=== PATIENT | female | born 1995 | race Caucasian/White ===

== ENCOUNTER 2019-12-31 18:20 | Emergency (ER) | payer OTHER, SELFPAY ==
--- NOTE | ~2019-12-31 | XR_ITS ---
EXAMINATION: XR finger 3rd RT min 2V EXAM DATE: 12/31/2019 19:09 INDICATION: Initial encounter following injury, with pain of the right third finger. TECHNIQUE: Right third finger frontal, lateral and oblique projections obtained and reviewed. Ther e is no prior study for comparison. FINDINGS: There may be laceration, amputation of the soft tissue at the tip of the right third finge r. The tuft is unremarkable. There are no acute fractures or dislocations identified. There is no mena bcutaneous gas. There is a bandage overlying the finger. IMPRESSION: Soft tissue injury. Reviewed, dictated and finalized at location A. IMPRESSION: Soft tissue injury.
[2019-12-31 18:24] VITALS: BP 120/95; PULSE 90; RESP 14; TEMP 36.9; O2SAT 99
--- NOTE | 2019-12-31 19:00 | ED.WOUNDLAC ---
HPI - Wound/Laceration General Chief Complaint: Wound/Laceration Stated Complaint: laceration Time Seen by Provider: 12/31/19 18:26 Source: patient Mode of arrival: ambulatory Limitations: no limitations History of Present Illness HPI narrative: This is a 24 year old female that presents to the ER for laceration to right 3rd finger sustained just prior to arrival. Reports she was using a potato slicer and cut the tip of her skin off. Reports bleeding to the area and pain. She is unsure of her last tetanus vaccine. Denies decreased ROM or numbness. Related Data Home Medications Medication Instructions Recorded Confirmed No Home Medications 12/31/19 12/31/19 norethindrone-e.estradiol-iron tablet 12/31/19 [10/17 (28)] Allergies Allergy/AdvReac Type Severity Reaction Status Date / Time No Known Allergies Allergy Unverified 12/31/19 18:30 Review of Systems Review of Systems: Narrative: CONSTITUTIONAL: Denies fever SKIN: Reports laceration MUSCULOSKELETAL: Denies joint pain NEUROLOGIC: Denies numbness All systems reviewed & are unremarkable except as noted in HPI and below PMFSH Past Medical History Medical History (Updated 12/31/19 @ 19:31 by Marjan Yanes PA-C) History of anxiety Social History Social History (Updated 12/31/19 @ 19:02 by Marjan Yanes PA-C) Smoking status: Never smoker Gender identity (if verbalized by the patient): Female Exam Narrative: Exam Narrative: GENERAL: Well-appearing, well-nourished, and in no acute distress. HEAD: Normocephalic, atraumatic. EYES: EOMI. EXTREMITIES: Normal range of motion. No edema. 1cm circular area skin of the tip of the right third finger avulsed with mild bleeding SKIN: Warm, dry, no rash. NEURO: No focal deficits. Alert and oriented x3. PSYCH: Normal mood and affect Course Vital Signs Vital signs: Vital Signs Temperature 98.4 F 12/31/19 18:24 Pulse Rate 90 12/31/19 18:24 Respiratory Rate 14 12/31/19 18:24 Blood Pressure 120/95 H 12/31/19 18:24 Pulse Oximetry 99 12/31/19 18:24 Temperature 98.4 F 12/31/19 18:24 Pulse Rate 90 12/31/19 18:24 Respiratory Rate 14 12/31/19 18:24 Blood Pressure 120/95 H 12/31/19 18:24 Pulse Oximetry 99 12/31/19 18:24 Procedures Laceration Laceration 1: Date: 12/31/19 Time: 19:29 Site: hand Side (If applicable): right Size (cm): 1 Description: other (skin of tip of finger avulsed) Pre-repair: irrigated extensively ====== Skin Level ====== ====== Subcutaneous Layer ====== ====== Muscle Layer ====== ====== Tendon Layer ====== Dressing: A small area of skin at the tip of the finger is avulsed. Wound was irrigated. There is no tissue to approximate. Patient did bring in the skin, there is not much subcutaneous tissue with it. I do not think that it would live if I tried to reattach. Bleeding was controlled with Surgicel and wound bandaged MDM - Wound/Laceration MDM Narrative Medical decision making narrative: Patient presents to the emergency department for right third finger avulsion of the skin of the tip of the finger. Patient's wound was irrigated and bleeding controlled with Surgicel. She is updated on tetanus. Patient's wound was bandaged. Patient and family were educated on wound care. She is to follow-up with primary care doctor. She is given warnings to return to the ER Imaging Data Radiologist's impression: ITS Impressions Finger X-Ray 12/31/19 19:11 IMPRESSION: Soft tissue injury. Critical Care Time Critical Care Time Critical Care Time: No Discharge Plan Discharge Clinical Impression: Avulsion of skin Patient Disposition: Home, Self-Care Condition: Stable Instructions: Skin Avulsion (ED) Additional Instructions: Return to the emergency department if you experience fever, redness or swelling of your wound, abnormal draina
[2019-12-31] MEDS: IBUPROFEN 600 MG TABLET PO (19:05)
[2019-12-31] MEDS: TETANUS,DIPHTHERIA,AC PERTUSSIS ADULT (0.5 ML) BOOSTRIX IM (19:20)
[2019-12-31 19:40] VITALS: BP 141/88; PULSE 82; RESP 18; O2SAT 100
== END 2019-12-31 19:41 | disposition home or self-care (01) ==
PROVIDERS: Emergency Provider Emergency Medicine; PCP Physician Assistant
DX: S61.212A Laceration without foreign body of right middle finger without damage to nail, initial encounter (principal); Z23 Encounter for immunization; W27.4XXA Contact with kitchen utensil, initial encounter; Y93.G1 Activity, food preparation and clean up
CPT/HCPCS: 12001; 73140; 90471; 90715; 99283; A9270

== ENCOUNTER 2022-04-20 19:05 | Inpatient (IN) | payer OTHER, SELFPAY ==
--- NOTE | 2022-04-20 19:05 | LDADM ---
This patient, Arlette Cano, was admitted to Labor/Delivery/Recovery 104 on 04/20/22 at 19:05. Plans for labor, pain management and were discussed with patient. Patient/family oriented to hospital policies and general routines including ID bracelet, bed and alarms, visiting hours, pain management, procedures, bathroom and other care routines, personal items, smoking policy, room service/diet and guest tray routines, infant security routines, and visiting hours. Patient/Family are encouraged to report perceived risks to care and to ask questions if they do not understand what they are told or what they should do. See OBIX for further documentation.
--- OUTSIDE RECORDS SUMMARY | 2022-04-20 19:11 | XMS_ITS ---
:1995 Author Care Team Providers Name Role Phone Praful Mustafa Primary Care Provider Unavailable Allergies Code Code System Name Reaction Severity Status Onset 90171 RxNorm Zyrtec Vomiting ? Active ? Medications Name Status Start Date Stop Date ? ? amitriptyline 25 mg tablet Completed ? 10/21 amoxicillin 875 mg tablet Completed ? 2018 amoxicillin 875 mg-potassium clavulanate 125 mg tablet Unknown ? Not available Aurovela Fe 1-20 (28) 1 mg-20 mcg (21)/75 mg (7) tablet Complete d ? 07/06/2020 cefdinir 300 mg capsule Completed ? 08/31/20 20 cephalexin 500 mg capsule Completed ? 2019 Cipro HC 0.2 %-1 % ear drops,suspension Active ? Not available INSTILL 3 DROPS IN LEFT EAR Q 12 H clotrimazole-betamethasone 1 %-0.05 % topical cream Completed ? 11/16/2018 Fioricet 50 mg-300 mg-40 mg capsule Completed ? 10/21/2017 TAKE ONE CAPSULE BY MOUTH EVERY 6 HOURS NEEDED fluticasone propionate 50 mcg/actuation nasal Unknown ? Not available spray,suspension hydrocodone 5 mg-acetaminophen 325 mg tablet Completed ? 07/06/2020 hydrocodone 7.5 mg-ibuprofen 200 mg tablet Unknown ? Not available fnklzgko-lbenmvhbn-ydmtrgvtv 3.5 mg/mL-10,000 unit/mL- 1 % ear solution Completed ? 08/31/2020 INSTILL 4 DROPS INTO LEFT EAR TID norethindrone 1 mg-e. estradiol 20 mcg (24)-iron 75 mg Completed ? 01/09/2020 (4) chew tablet norethindrone acetate 1 mg-ethinyl estradiol 20 mcg Completed ? 07/06/2020 tablet penicillin V potassium 500 mg tablet Unknown ? Not available phentermine 37.5 mg tablet Completed ? 01/08 prednisone 50 mg tablet Active ? Not [place]
--- OUTSIDE RECORDS SUMMARY | 2022-04-20 19:11 | XMS_ITS ---
:1995 Author Care Team Providers Name Role Phone Praful Mustafa Primary Care Provider Unavailable Allergies Code Code System Name Reaction Severity Status Onset 49306 RxNorm Zyrtec Rash Mild to Moderate Active ? Medications Name Status Start Date Stop Date ? ? amitriptyline 25 mg tablet Active ? Not a vailable amoxicillin 875 mg tablet Active ? Not av ailable amoxicillin 875 mg-potassium clavulanate 125 mg tablet Active ? Not available Aurovela Fe 1-20 (28) 1 mg-20 mcg (21)/75 mg (7) tablet Active ? Not available cefdinir 300 mg capsule Active ? Not avai lable cephalexin 500 mg capsule Active ? Not av ailable Cipro HC 0.2 %-1 % ear drops,suspension Active ? Not available INSTILL 3 DROPS IN LEFT EAR Q 12 H clotrimazole-betamethasone 1 %-0.05 % topical cream Active ? Not available Fioricet 50 mg-300 mg-40 mg capsule Active ? Not available TAKE ONE CAPSULE BY MOUTH EVERY 6 HOURS NEEDED fluticasone propionate 50 mcg/actuation nasal Active ? Not available spray,suspension hydrocodone 5 mg-acetaminophen 325 mg tablet Active ? Not available hydrocodone 7.5 mg-ibuprofen 200 mg tablet Active ? Not available Minastrin 24 Fe Active ? Not available ylvuwely-vljshfmuf-sgbnyuifa 3.5 mg/mL-10,000 unit/mL-1 % ear so lution Active ? Not available INSTILL 4 DROPS INTO LEFT EAR TID norethindrone 1 mg-e. estradiol 20 mcg (24)-iron 75 mg (4) Activ e ? Not available chew tablet norethindrone acetate 1 mg-ethinyl estradiol 20 mcg tablet Activ e ? Not available penicillin V potassium 500 mg tablet Active ? Not available phentermine 37.5 mg tablet Active ? Not a vailable prednisone 50 mg tablet Active ? Not a
[2022-04-20 19:31] VITALS: BP 151/102; PULSE 112
[2022-04-20 19:39] LABS: Basophils Percent Auto 0.2 % (0.2-1.2); Eosinophils Absolute Auto 0.1 K/mm3 (0-0.3); Eosinophils Percent Auto 0.3 % (0-4.4); Hemoglobin 14.1 g/dL (12.0-15.0); Immature Granulocyte Absolute 0.07 K/mm3 (0.00-0.031); Immature Granulocyte Percent A 0.5 % (0-0.5); Lymphocytes Absolute Auto 2.44 K/mm3 (0.9-3.2); Lymphocytes Percent Auto 16.7 % (18.3-44.2); Mean Corpuscular HGB Conc 33.6 g/dl (32-36); Mean Corpuscular Hemoglobin 29.1 pg (26-34); Mean Corpuscular Volume 86.8 fl (80-100); Mean Platelet Volume 12.6 fl (7.4-10.4); Monocytes Absolute Auto 1.1 K/mm3 (0.1-0.6); Monocytes Percent Auto 7.2 % (2.6-8.5); Neutrophils Percent Auto 75.1 % (45.5-73.1); Platelet Count Result 278 k/mm3 (150-375); Red Blood Count 4.84 M/mm3 (4.2-5.4); Red Cell Distribution Width 13.5 % (11.5-14.5); White Blood Count 14.6 K/mm3 (4.5-10.0)
[2022-04-20 19:47] VITALS: BP 141/103; PULSE 130; TEMP 37
[2022-04-20 19:49] LABS: Alanine Aminotransferase 17 U/L (6-35); Albumin Level 3.8 g/dL (3.5-5.1); Alkaline Phosphatase 157 U/L (38-126); Anion Gap 9 mmol/L (8-16); Aspartate Amino Transferase 20 U/L (14-36); Bilirubin,Total 0.5 mg/dL (0.2-1.3); Blood Urea Nitrogen 5 mg/dL (7-17); Calcium 8.8 mg/dL (8.4-10.2); Carbon Dioxide 22 mmol/L (22-30); Chloride 106 mmol/L (98-107); Estimated Glomerular Filt Rate > 60; Glucose 116 mg/dL (65-110); Potassium 3.8 mmol/L (3.4-5.0); Sodium 137 mmol/L (137-145)
[2022-04-20 19:50] VITALS: BMI 37.6
[2022-04-20 19:50] LABS: Uric Acid 3.9 mg/dL (2.5-7.5)
[2022-04-20] MEDS: DINOPROSTONE 10 MG VAG INSERT VAGINAL (19:54)
[2022-04-20 19:55] VITALS: BP 138/97; PULSE 106
[2022-04-20] MEDS: AMPICILLIN 2 GM/NS 100 ML 2 GM/100 ML BAG IVPB (19:55)
[2022-04-20] MEDS: LACTATED RINGERS 1,000 ML 125 ML IV CONT (19:56)
[2022-04-20 20:30] VITALS: BP 137/83; PULSE 99
[2022-04-20 21:00] VITALS: BP 138/75; PULSE 97; TEMP 37
[2022-04-20 21:30] VITALS: BP 138/58; PULSE 98
[2022-04-21] VITALS (254 sets, daily range): BP systolic 108–174; BP diastolic 58–143; PULSE 25–202; RESP 16; TEMP 36.4–37.1; O2SAT 88–100
[2022-04-21] MEDS: AMPICILLIN 1 GM/NS 50 ML 1 GM/50 ML BAG IVPB ×6 (00:08→21:03)
--- NOTE | 2022-04-21 06:29 | WPDANESEPP ---
Anes - Eval Pre Procedure Procedure: labor epidural Date/Time: 04/21/22 06:29 Surgeon: suhail bolden Preop Diagnosis: pain during labor Pre Op Diagnosis: Induction of Labor Patient Data Age: 26 Gender: F Height: 1.7 m Weight: 109 kg Last Vital Signs Temp 36.6 C 04/21/22 04:42 Pulse 79 04/21/22 06:00 BP 137/83 04/21/22 06:00 O2 Del Method Room Air 04/21/22 06:15 Allergies Allergy/AdvReac Type Severity Reaction Status Date / Time No Known Allergies Allergy Verified 04/08/22 15:38 Home Medications Medication Instructions Recorded Confirmed Type prenat.vits,hayley,uua-cvmy-llwuf 1 tablet PO HS 04/08/22 04/08/22 History Laboratory Tests 04/20/22 04/20/22 04/20/22 19:30 19:30 19:30 WBC 14.6 K/mm3 H K/mm3 (4.5-10.0) RBC 4.84 M/mm3 M/mm3 (4.2-5.4) Hgb 14.1 g/dL g/dL (12.0-15.0) Hct 42.0 % % (37.0-47.0) MCV 86.8 fl fl (80-100) MCH 29.1 pg pg (26-34) MCHC 33.6 g/dl g/dl (32-36) RDW 13.5 % % (11.5-14.5) Plt Count 278 k/mm3 k/mm3 (150-375) MPV 12.6 fl H fl (7.4-10.4) Immature Gran % (Auto) 0.5 % % (0-0.5) Neut % (Auto) 75.1 % H % (45.5-73.1) Lymph % (Auto) 16.7 % L % (18.3-44.2) [place] % (Auto) 7.2 % % (2.6-8.5) Eos % (Auto) 0.3 % % (0-4.4) Baso % (Auto) 0.2 % % (0.2-1.2) Lymph # (Auto) 2.44 K/mm3 K/mm3 (0.9-3.2) [place] # (Auto) 1.1 K/mm3 H K/mm3 (0.1-0.6) Eos # (Auto) 0.1 K/mm3 K/mm3 (0-0.3) Baso # (Auto) 0.0 K/mm3 K/mm3 (0.0-0.1) Abs Immat Gran (auto) 0.07 K/mm3 H K/mm3 (0.00-0.031) Absolute Neuts (auto) 11.0 K/mm3 H K/mm3 (1.3-6.7) Absolute Nucleated RBC 0.0 K/mm3 K/mm3 (0.0-0.012) Nucleated RBC % 0.0 % % (0.0-0.2) Sodium Potassium Chloride Carbon Dioxide Anion Gap BUN Creatinine Estim Creat Clear Calc Estimated GFR Glucose Uric Acid Calcium Total Bilirubin AST ALT Alkaline Phosphatase Total Protein Albumin RPR Pending Blood Type A Positive Antibody Screen Negative 04/20/22 19:30 WBC RBC Hgb Hct MCV MCH MCHC RDW Plt Count MPV Immature Gran % (Auto) Neut % (Auto) Lymph % (Auto) [place] % (Auto) Eos % (Auto) Baso % (Auto) Lymph # (Auto) [place] # (Auto) Eos # (Auto) Baso # (Auto) Abs Immat Gran (auto) Absolute Neuts (auto) Absolute Nucleated RBC Nucleated RBC % Sodium 137 mmol/L mmol/L (137-145) Potassium 3.8 mmol/L mmol/L (3.4-5.0) Chloride 106 mmol/L mmol/L (98-107) Carbon Dioxide 22 mmol/L mmol/L (22-30) Anion Gap 9 mmol/L mmol/L (8-16) BUN 5 mg/dL L mg/dL (7-17) Creatinine 0.60 mg/dL L mg/dL (0.7-1.0) Estim Creat Clear Calc Not Reportable Estimated GFR > 60 (59 - ) Glucose 116 mg/dL H mg/dL (65-110) Uric Acid 3.9 mg/dL mg/dL (2.5-7.5) Calcium 8.8 mg/dL mg/dL (8.4-10.2) Total Bilirubin 0.5 mg/dL mg/dL (0.2-1.3) AST 20 U/L U/L (14-36) ALT 17 U/L U/L (6-35) Alkaline Phosphatase 157 U/L H U/L (38-126) Total Protein 7.0 g/dL g/dL (6.3-8.2) Albumin 3.8 g/dL g/dL (3.5-5.1) RPR Blood Type Antibody Screen Patient hx anesthesia problems: none Family hx anesthesia problems: none Results Review: All pre-operative results and documents have been reviewed as part of the pre-operative evaluation. [facility] Past Medical History Medical History (Updated 04/21/22 @ 06:30 by Frida Powers
--- NOTE | 2022-04-21 06:56 | PM.IMHP ---
H&P: HPI History of Present Illness Date/Time: 04/21/22 06:56 Chief Complaint: Induction of labor at term Narrative: this is a a 26-year-old 2 para 0 admitted at 39 weeks gestation for induction of labor. Her has been uncomplicated. She is positive for group B strep to be treated in labor. [facility] Past Medical History Medical History History of anxiety Obesity (BMI 30-39.9) Family History Family History Other No pertinent family history Social History Social History Smoking status: Never smoker Second hand tobacco smoke exposure: No Alcohol intake: current Substance use: never Substance use type: does not use Gender identity (if verbalized by the patient): Female Spiritual care concerns: No Meds Home Medications and Allergies Home Medications Medication Instructions Recorded Confirmed Type prenat.vits,hayley,xmz-fcws-vfycv 1 tablet PO HS 04/08/22 04/08/22 History Allergies Allergy/AdvReac Type Severity Reaction Status Date / Time No Known Allergies Allergy Verified 04/08/22 15:38 Vital Signs Vital Signs - 24 hr 04/20/22 19:31 04/20/22 19:47 04/20/22 19:55 Temperature 98.6 F Pulse Rate 112 H 130 H 106 H Blood Pressure 151/102 H 141/103 H 138/97 H Oxygen Delivery 04/20/22 20:30 04/20/22 21:00 04/20/22 21:30 Temperature 98.6 F Pulse Rate 99 97 98 Blood Pressure 137/83 138/75 138/58 L Oxygen Delivery 04/21/22 01:06 04/21/22 00:10 04/21/22 04:42 Temperature 97.9 F 97.8 F 98 F Pulse Rate 80 67 Blood Pressure 145/89 H 147/80 H Oxygen Delivery 04/21/22 05:01 04/21/22 06:00 04/21/22 06:15 Temperature Pulse Rate 74 79 Blood Pressure 133/68 137/83 Oxygen Delivery Room Air Exam GI: Inspection: normal to inspection Auscultation: normal bowel sounds : External Female Exam: normal external appearance Speculum Exam - Vagina: normal appearance of the vagina Speculum Exam - Cervix: normal appearance of the cervix ( Cervix 2/80/2. AROM clear. FHTs reassuring) H&P: Results Labs Labs: Short CBC 04/20/22 Range/Units 19:30 WBC 14.6 H (4.5-10.0) K/mm3 Hgb 14.1 (12.0-15.0) g/dL Hct 42.0 (37.0-47.0) % Plt Count 278 (150-375) k/mm3 BMP 04/20/22 19:30 Sodium 137 Potassium 3.8 Chloride 106 Carbon Dioxide 22 BUN 5 L Creatinine 0.60 L Glucose 116 H Calcium 8.8 Liver Function 04/20/22 Range/Units 19:30 Total Bilirubin 0.5 (0.2-1.3) mg/dL AST 20 (14-36) U/L ALT 17 (6-35) U/L Alkaline Phosphatase 157 H (38-126) U/L Albumin 3.8 (3.5-5.1) g/dL Assessment and Plan Assessment and plan (1) : Code(s): Z34.90 - Encounter for supervision of normal , unspecified, unspecified trimester Status: Acute (2) Obesity (BMI 30-39.9): Code(s): E66.9 - Obesity, unspecified Status: Acute (3) Positive testing for group B Streptococcus: Code(s): B95.1 - Streptococcus, group B, as the cause of diseases classified elsewhere Status: Acute Assessment and Plan: Plan Spontaneous vaginal delivery is expected. Medical induction of labor. Group B strep prophylaxis. Epidural candidate
[2022-04-21] MEDS: OXYTOCIN 30 UNITS/NS 500 ML 30 UNITS/500 ML BAG IV CONT (07:45)
[2022-04-21] MEDS: LABETALOL HCL 100 MG TABLET 200 MG PO (08:12)
[2022-04-21 09:26] LABS: Rapid Plasma Reagin Non-Reactive (NonReactive)
[2022-04-21] MEDS: LACTATED RINGERS 1,000 ML 125 ML IV CONT ×2 (09:44→17:24)
--- NOTE | 2022-04-21 18:18 | PM.OBPNLAB ---
Pain Control Date/time seen: 04/21/22 18:18 Pain control: tolerating well and epidural Pelvic Exam Dilation (cm): 10 Effacement (%): 100 Amniotic membrane status: Ruptured Contractions Contraction frequency: 3
[2022-04-21] MEDS: ONDANSETRON INJ 4 MG/2 ML VIAL IV PUSH (19:03)
--- NOTE | 2022-04-21 22:14 | PM.OBPRVD ---
OB - Delivery Note Procedure Delivery date: 04/21/22 Procedure: mil Induction method: Per Cervidil Protocol Delivery augmentation: Rupture of Membranes and Pitocin Delivery monitor: External FHT and Internal Uterine Route of delivery: Episiotomy description: None Laceration Description: Perineal - 2nd Degree Delivery repair: vicryl Specimen: No Quantitative Blood Loss (ml): 159 Anesthesia type: Epidural Disposition: Floor Complications: amp x 7 for gbs Baby Date of : 04/21/22 Time of : 21:55 Weeks of gestation at delivery: 39 Infant gender: Male presentation: vertex position: Right Occiput Anterior Placenta delivery description: Spontaneous Cord Vessel Description: 3 Vessels score one minute: 7 score five minutes: 8
[2022-04-21] MEDS: OXYTOCIN 30 UNITS/NS 500 ML 30 UNITS/500 ML BAG 125 UNITS IV CONT (22:36)
[2022-04-22] VITALS (11 sets, daily range): BP systolic 123–145; BP diastolic 72–93; PULSE 84–105; RESP 14–18; TEMP 36.2–37.1; O2SAT 96–100
[2022-04-22] MEDS: ACETAMINOPHEN 325 MG TABLET 650 MG PO ×4 (00:45→22:26)
[2022-04-22] MEDS: BENZOCAINE 20% AER SPR (*SP) 56 GM CAN 1 SPRAY TOPICAL (00:45)
[2022-04-22] MEDS: WITCH HAZEL 40 PADS 1 PAD TOPICAL (00:45)
--- NOTE | 2022-04-22 01:36 | OBPPTRN ---
04/22/2022 at 0057 Patient transferred to post room #290. Support person present. Oriented to unit, room, information board, rooming in, admission packet and security measures. Patient verbalizes understanding.
[2022-04-22] MEDS: ZOLPIDEM TARTRATE (*CRX) 5 MG TABLET PO (02:30)
[2022-04-22] MEDS: IBUPROFEN 600 MG TABLET PO ×3 (02:44→18:58)
[2022-04-22 04:33] LABS: Hematocrit 37.7 % (37.0-47.0); Hemoglobin 13.1 g/dL (12.0-15.0)
[2022-04-22] MEDS: MULTIVIT/MIN/PREN/FOL AC/IRON TABLET 1 TAB PO (07:23)
--- NOTE | 2022-04-22 07:23 | PM.OBPNVD ---
OB - PN: Subj Subjective Date/time seen: 04/22/22 07:23 Patient comments: no complaints and pain well controlled baby status: doing well (stable in level 2) OB - PN: Obj Data Labs CBC & Chem 7: 04/22/22 04:19 04/20/22 19:30 Labs: Laboratory Results - last 24 hr 04/20/22 04/22/22 19:30 04:19 Hgb 13.1 Hct 37.7 RPR Non-reactive OB - PN A/P Assessment and Plan (1) Positive testing for group B Streptococcus: Code(s): B95.1 - Streptococcus, group B, as the cause of diseases classified elsewhere Status: Acute (2) : Code(s): Z34.90 - Encounter for supervision of normal , unspecified, unspecified trimester Status: Acute (3) Obesity (BMI 30-39.9): Code(s): E66.9 - Obesity, unspecified Status: Acute Plan day: 1 Plan: routine care Time Spent With Patient Time: Total time spent is greater than 50% in coordination of care (as documented) at patient's floor/unit and/or counseling patient: Time with patient: less than 15 minutes
--- NOTE | 2022-04-22 07:48 | WPDANLDPN2 ---
Anes-Prog Note L&D Date/Time: 04/22/22 07:48 Comfortable throughout: labor and delivery Neuraxial method: epidural Epidural/Spinal procedure site: clean & non-tender Neuro status: Neuro function grossly intact. Cardiovascular status: normal Respiratory status: normal Airway patency: baseline Mental status: baseline Post-Op hydration status: normal Vital Signs: Last Vital Signs Temp 36.8 C 04/22/22 04:20 Pulse 100 04/22/22 04:20 Resp 16 04/22/22 04:20 BP 128/77 04/22/22 04:20 Pulse Ox 97 04/22/22 04:20 O2 Del Method Room Air 04/21/22 06:15 Pain score (VAS): 2 I/O: Intake & Output 04/21/22 04/21/22 04/22/22 15:59 23:59 07:59 Intake Total 1100 1050 Output Total 50 Balance 1100 1050 -50 Post-procedural complaints: none Patient feedback: Patient satisfied with anesthetic care.
[2022-04-23 00:11] VITALS: BP 135/77
[2022-04-23] MEDS: IBUPROFEN 600 MG TABLET PO ×2 (01:14→09:32)
[2022-04-23] MEDS: WITCH HAZEL 40 PADS 1 PAD TOPICAL (01:17)
[2022-04-23] MEDS: ACETAMINOPHEN 325 MG TABLET 650 MG PO (06:11)
--- NOTE | 2022-04-23 07:21 | PM.DS ---
DS: Admitting Diagnosis Discharge Date 04/23/2022 Admitting Diagnosis Term Gestational hypertension DS: Discharge Diagnosis Discharge Diagnosis (1) Positive testing for group B Streptococcus: Code(s): B95.1 - Streptococcus, group B, as the cause of diseases classified elsewhere Status: Acute (2) : Code(s): Z34.90 - Encounter for supervision of normal , unspecified, unspecified trimester Status: Acute (3) Obesity (BMI 30-39.9): Code(s): E66.9 - Obesity, unspecified Status: Acute DS: Summary Hospital Course Reason for hospitalization: Mildly elevated blood pressure at term Hospital Course: This is a 26 year primigravida admitted at term for induction of labor. She had mildly elevated blood pressures which fluctuated through to care. She was well controlled here. She underwent successful spontaneous vaginal delivery of a male. Her 48hour course was unremarkable. She remained. She was up, voiding without difficulty, ambulating, breast-feeding, generally without complaints. Time Spent with Patient Time attestation: Total time spent providing and/or coordinating discharge services: Discharge Plan Discharge Attending physician on discharge: Praful Ashraf Discharging Clinician: Praful Ashraf Patient Disposition: Home, Self-Care Activity: may shower and no straining Diet: heart healthy Wound Care Instructions: follow printed instructions Patient Instructions: Antibiotic Form Stand Alone Forms: General Discharge Information Follow-up/Referrals: Praful Ashraf MD [Physician] - Discharge Medications: Continued #2 Tablet 1 tablet PO HS Date of admission: 04/20/22 19:05 Primary Care Provider: [facility]elle Admitting Provider: Praful Ashraf Attending physician on admission: Praful Ashraf Condition: Stable
--- NOTE | 2022-04-23 07:25 | PM.OBPNVD ---
OB - PN: Subj Subjective Date/time seen: 04/23/22 07:25 Patient comments: no complaints and pain well controlled baby status: doing well and nursing well OB - PN: Obj Data Labs CBC & Chem 7: 04/22/22 04:19 04/20/22 19:30 OB - PN A/P Assessment and Plan (1) Positive testing for group B Streptococcus: Code(s): B95.1 - Streptococcus, group B, as the cause of diseases classified elsewhere Status: Acute (2) : Code(s): Z34.90 - Encounter for supervision of normal , unspecified, unspecified trimester Status: Acute Plan . Follow up 6 weeks Plan day: 1 Plan: routine care, discharge home and follow up 6 weeks Time Spent With Patient Time: Total time spent is greater than 50% in coordination of care (as documented) at patient's floor/unit and/or counseling patient: Time with patient: less than 15 minutes
[2022-04-23 08:10] VITALS: BP 127/71; PULSE 88; RESP 18; TEMP 36.4; O2SAT 97
[2022-04-23] MEDS: MULTIVIT/MIN/PREN/FOL AC/IRON TABLET 1 TAB PO (09:32)
[2022-04-23] MEDS: DOCUSATE SODIUM 100 MG CAPSULE PO (09:32)
--- NOTE | 2022-04-23 12:38 | PC.NURSE ---
Patient viewed the discharge video Mother & Baby Care, The First Two Weeks . Patient was given the opportunity and encouraged to ask questions. Patient verbalized understanding of information shared and has been given the mother/baby guide for home reference.
[2022-04-24 10:28] VITALS: BP 136/87; PULSE 92; RESP 20; TEMP 36.7; O2SAT 18
== END 2022-04-23 12:12 | disposition home or self-care (01) | DRG 807 ==
LOC: ANHLDR 19:16 → ANHOB2 04-22 01:00
PROVIDERS: Admitting Provider Obstetrics & Gynecology; PCP Physician Assistant; Visit Provider Obstetrics & Gynecology
DX: O99.824 Streptococcus B carrier state complicating childbirth (principal); Z37.0 Single live birth; Z3A.39 39 weeks gestation of pregnancy; O10.92 Unspecified pre-existing hypertension complicating childbirth; O36.8330 Maternal care for abnormalities of the fetal heart rate or rhythm, third trimester, not applicable or unspecified; O70.1 Second degree perineal laceration during delivery; O99.214 Obesity complicating childbirth; E66.9 Obesity, unspecified
CPT/HCPCS: 36415; 80053; 84550; 85014; 85018; 85025; 86592; 86850; 86900; 86901; A9270; J0290; J2405; J2590; J2795; J7120

== ENCOUNTER 2025-04-24 11:18 | Observation (INO) | payer OTHER, SELFPAY ==
--- NOTE | 2025-04-24 11:18 | OBADM ---
This patient, Arlette Cano, admitted to the OB room OB Post 116 for observation. Patient/family oriented to hospital policies and general routines including ID bracelet, bed and alarms, visiting hours, pain management, procedures, bathroom and other care routines, personal items, smoking policy, room service/diet, and visiting hours. Patient/Family are encouraged to report perceived risks to care and to ask questions if they do not understand what they are told or what they should do.
--- OUTSIDE RECORDS SUMMARY | 2025-04-24 11:43 | XMS_ITS | Data Portability ---
Author Organization [place] [facility] [employer], Main Office Address [address] [place] [address] Care Team Providers Care Welding Instructor Name Role Phone ELI BELL Primary Care Provider MATTELI JAVIER Referring Provider Assessment Encounter Date Assessment Date Assessment LastModified by Organization Details LastModified Time 03/21/2024 03/21/2024 This note is dictated and transcribed by [employer]. Acute Care Physical Therapist variances may occur. Despite proofreading, typographical errors may occur. Occasional wrong-word or 'vrucj-c-opez' substitutions may have occurred due to the inherent limitations of voice recording. Read the chart carefully and recognize, using context, where substitutions have occurred. [email or web address] Not available 03/21/2024 15:04:33 04/12/2024 04/12/2024 This note is dictated and transcribed by [employer]. Acute Care Physical Therapist variances may occur. Despite proofreading, typographical errors may occur. Occasional wrong-word or 'anssg-u-qqxg' substitutions may have occurred due to the inherent limitations of voice recording. Read the chart carefully and recognize, using context, where substitutions have occurred. [email or web address] Not available 04/12/2024 12:19:12 Plan of Treatment Reminders Order Date Submit Date Provider Last Modified By Organization Details Last Modified Time Details Appointments None recorded. Lab None recorded. Referral None recorded. Procedures None recorded. Surgeries None recorded. Imaging XR, foot, 3 or more view 2023 024 nu [email or web address] [facility] [place], [facility], [place], [address], 4 15:05:03 Medication Orders diclofenac sodium 75 mg tablet,courtney yed release 2023 024 [facility]acy #[id number], [address], [place], [address], 15:06:54 Patient TargetsNo targets recorded. Patient Instructions Encounter Date Encounter Id Patient Instructions Last Modified By Organization Details Last Modified Time 03/21/2024 [id number] peroneal tendon strain: rehab exercises teodoro Not available 03/21/2024 15:07:09 learning about rice (rest, ice, compression, and elevation) teodoro Not available 03/21/2024 15:05:03 Reason for Referral None Reported. Results Created Date Observation Date Name Description Value Unit Range Abnormal Flag Note LastModifiedBy Organization Detail LastModifiedTime 03/21/20 XR, foot, 3 or more view No observ ation record ed. [email or web address] [facility] [place] [address], [place], [address], 03/21/2024 15:05:01 Result Notes None recorded. Problems Name Problem SNOMED Code Status Onset Date Resolution Date Notes Provider Name and Address Organization Details Recorded Time Generalize d headache 670430134 Active Not Available [facility] 3 18:00:39 Migraine 51887135 Active Not Available [facility] 3 18:00:39 Sprain of right foot 9290562691715 9106 Active 2021 Not Available [facility] 3 18:00:39 Pain in right foot 7572071033613 07 Active 2021 Not Available [facility] 3 18:00:39 Anterior chest wall pain 386595941 Active 2022 Not Available [facility] 3 18:00:39 Anxiety 73064295 Active 2022 Not Available [facility] 3 18:00:40 Peroneal tendinitis of left lower limb 4965336955201 07 Active 2023 Prem Nunn DPM [address], [place], [address] , [facility] [facility] 4 15:04:18 Pain in left foot 0726925266402 07 Active 2023 Prem Nunn DPM [address], [address], [place], [address] , [facility] [employer] [facility] 4 15:04:31 Problem Notes None recorded. Procedures Surgical History Date Name Laterality Status Provider Name and Address Organization Details Recorded Time 4 Plantar Fascia Injection Left Foot completed Prem Nunn DPM [address], [address], [place], [address], [facility] 04/12/2024 12:20:57 Imaging Results None recorded. Procedure Notes None recorded. Medical Equipment None Reported. Allergies Allergen ID Allergen Name Allergen Category Reaction Reaction Severity Criticality Documentation Date Start Date Code Code System Note Provider Name and Address Organization Details Recorded Time 27397 Zyrtec medicatio n vomiting Not available Not available 11/26/2022 68738 RxNorm Not Available [facility] 3 18:01:25 Medications Name Sig Start Date Stop Date Status Note LastModified by Organization Details LastModified Time hydrocodone 7.5 mg-ibuprofe n 200 mg tablet active Not Available Not Available Not Available neomycin-po lymyxin-hyd rocort 3.5 mg/mL-10,00 0 unit/mL-1 % ear solution INSTILL 4 DROPS INTO left ear BY OTIC ROUTE 3 TIMES PER DAY active Not Available Not Available No t Available hydrocodone 5 mg-acetamin ophen 325 mg tablet TK 1 T PO Q 6 H PRF PAIN active Not Available Not Available No t Available Tubersol 5 tub. unit/0.1 mL intradermal injection solution Inject 0.1 mL by intraderm al route. 07/26 completed Not Available Not Available Not Available penicillin V potassium 500 mg tablet active Not Available Not Available Not Available phentermine 37.5 mg tablet TK 1 T PO QD 01/08 completed Not Available Not Available Not Available sulfamethox azole 800 mg-trimetho prim 160 mg tablet TK 1 T PO Q 12 H active Not Available Not Available No t Available amoxicillin 875 mg tablet 11/16 completed Not Available Not Available Not Available amitriptyli ne 25 mg tablet TAKE 1 TABLET BY MOUTH AT BEDTIME. pt due in april for appt. active Not Available Not Available No t Available cephalexin 500 mg capsule TAKE ONE CAPSULE BY MOUTH TWICE DAILY FOR 5 DAYS 10/20 completed Not Available Not Available Not Available clotrimazol e-betametha sone 1 %-0.05 % topical cream 11/16 completed Not Available Not Available Not Available prednisone 50 mg tablet one tab po daily x 5 days. start 09-01-2020 active Not Available Not Available No t Available sertraline 25 mg tablet TAKE 1 TABLET BY MOUTH EVERY DAY IN THE EVENING 01/08 completed Not Available Not Available Not Available diclofenac sodium 75 mg tablet,courtney yed release TAKE 1 TABLET BY MOUTH TWICE A DAY WITH MEALS active Not Available Not Available No t Available norethindro ne acetate 1 mg-ethinyl estradiol 20 mcg tablet TK 1 T PO QD active Not Available Not Available No t Available Cipro HC 0.2 %-1 % ear drops,suspe nsion INSTILL 3 DROPS INTO left ear BY OTIC ROUTE EVERY 12 HOURS active Not Available Not Available No t Available cefdinir 300 mg capsule Take 1 capsule every 12 hours by oral route with meals. active Not Available Not Available No t Available fluticasone propionate 50 mcg/actuati on nasal spray,suspe nsion active Not Available Not Available Not Available naproxen 500 mg tablet Take 1 tablet twice a day by oral route with meals. 10/20 completed Not Available Not Available Not Available amoxicillin 875 mg-potassiu m clavulanate 125 mg tablet active Not Available Not Available Not Available TobraDex 0.3 %-0.1 % eye drops,suspe nsion INSTILL 4 DROPS IN AFFECTED EAR 2 TIMES DAILY FOR 10 DAYS 05/29 completed Not Available Not Available Not Available norethindro ne 1 mg-e. estradiol 20 mcg (24)-iron 75 mg (4) chew tablet [employer] ONE T D 01/08 completed Not Available Not Available Not Available Fioricet 50 mg-300 mg-40 mg capsule Take 1 capsule every 6 hours by oral route as needed. active Not Available Not Available No t Available Prodrin 65 mg-20 mg-325 mg tablet active Not Available Not Available Not Available QNASL 40 mcg/actuati on nasal aerosol spray INSTILL 2 SPRAYS IEN QD UTD 10/21 completed Not Available Not Available Not Available Blisovi Fe 10/17 (28) 1 mg-20 mcg (21)/75 mg (7) tablet TAKE 1 TABLET BY MOUTH EVERY DAY 03/21 completed Not Available Not Available Not Available Vitals Date Recorded Body mass index (BMI) Body height Oxygen saturation Oxygen saturation in Arterial blood by Pulse oximetry Heart rate Body temperature Body weight Systolic And Diastolic Provider Name and Address Organization Details Last Updated DateTime 3 34.8 kg/m2 170.18 cm 99 % 99 % 82 /min 97.2 [degF] 915907. 51 g 118/74 mm[Hg] Not Available [facility] 3 18:00:33 Date Recorded Body height Body temperature Provider N tommy and Address Organization Details Last Updated DateTime 02/17/2022 170.18 cm 97.9 [degF] Not Available [facility] 11/26/2022 18:00:35 Date Recorded Body mass index (BMI) Body weight Heart rate Respiratory rate Body temperature Oxygen saturation Oxygen saturation in Arterial blood by Pulse oximetry Systolic And Diastolic Provider Name and Address Organization Details Last Updated DateTime 4 32.9 kg/m2 23768.4 g 78 /min 16 /min 97.7 [degF] 99 % 99 % 130/80 mm[Hg] Riri Stoll [employer] 4 14:49:02 Date Recorded Body height Provider Name an d Address Organization Details Last Updated DateTime 03/21/2024 170.18 cm Delmy Kennedy Sesamea 03/21/2024 14:44:34 Date Recorded Body height Body mass index (BMI) Body weight Heart rate Systolic And Diastolic Provider Name and Address Organization Details Last Updated DateTime 04/12/2024 170.18 cm 32.9 kg/m2 98926.4 g 68 /min 118/68 mm[Hg] ELIZABETH Helms [employer] 04/12/2024 12:04:00 Date Recorded Body mass index (BMI) Body height Body weight Provider Name and Address Organization Details Last Updated DateTime 06/26/2022 32.9 kg/m2 170.18 cm 94015.4 g Not Available [facility] 11/26/2022 18:00:36 Social History Question Answer Notes LastModified by Organizat ion Details LastModified Time Tobacco Smoking Status Never Smoker Not Available [facility] 11/26/2022 18:00:18 Do You Have An Advance Directive? No [id number] Information not available 11/26/2022 If You Are , What Was Your Level Of Alcohol Consumption Prior To ? None MIGRATION.659520 7313 Information not available 11/26/2022 Do You Wear A Helmet When Biking? No MIGRATION.164208 5996 Information not available 11/26/2022 What Is Your Level Of Caffeine Consumption? Occasional MIGRATION.034636 8574 Information not available 11/26/2022 In The 14 Days Before Symptom Onset, Have You Had Close Contact With A Laboratory-confirm ed COVID-19 While That Case Was Ill? No MIGRATION.623788 7801 Information not available 11/26/2022 In The 14 Days Before Symptom Onset, Have You Had Close Contact With A Person Who Is Under Investigation For COVID-19 While That Person Was Ill? No MIGRATION.922303 1813 Information not available 11/26/2022 What Type Of Diet Are You Following? REGULAR MIGRATION.441920 3756 Information not available 11/26/2022 What Is The Highest Grade Or Level Of School You Have Completed Or The Highest Degree You Have Received? [id number] MIGRATION.484208 2949 Information not available 11/26/2022 Have There Been Any Changes To Your Family Or Social Situation? No MIGRATION.213562 7793 Information not available 11/26/2022 Are There Any Guns Present In Your Home? Yes MIGRATION.969924 6435 Information not available 11/26/2022 Do You Use Insect Repellent Routinely? Yes MIGRATION.197409 1878 Information not available 11/26/2022 Do You Have A Medical Power Of Plastic Surgery Specialist? No MIGRATION.807914 1048 Information not available 11/26/2022 What Was The Date Of Your Most Recent Tobacco Screening? 03/21/2024 [email or web address] Information not available 03/21/2024 Have You Ever Been Counseled For Unhealthy Alcohol Use? No MIGRATION.862815 3962 Information not available 11/26/2022 What Is Your Relationship Status? MIGRATION.236274 7186 Information not available 11/26/2022 Do You Use Your Seat Belt Or Car Seat Routinely? Yes MIGRATION.397308 3642 Information not available 11/26/2022 Do You Have Smoke And Carbon Monoxide Detectors In Your Home? Yes MIGRATION.234233 0122 Information not available 11/26/2022 Do You Use Sunscreen Routinely? Yes MIGRATION.772036 4107 Information not available 11/26/2022 Has Tobacco Cessation Counseling Been Provided? No MIGRATION.545170 5709 Information not available 11/26/2022 Have You Recently Traveled Abroad? No MIGRATION.626193 2972 Information not available 11/26/2022 Do You Have Any Dietary Restrictions? No MIGRATION.618379 0440 Information not available 11/26/2022 Sex: Female Functional Status Question Answer Note LastModified by Organizat ion Details LastModified Time Do you use any illicit or recreational drugs? No MIGRATION.2670362 026 Information not available 11/26/2022 Do you or have you ever used any other forms of tobacco or nicotine? No MIGRATION.0793843 026 Information not available 11/26/2022 What is your level of alcohol consumption? 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 MIGRATION.4445738 026 Information not available 11/26/2022 What is your exercise level? Moderate MIGRATION.9828612 026 Information not available 11/26/2022 Mental Status Question Answer Note LastModified by Organizat ion Details LastModified Time Do you feel stressed (tense, restless, nervous, or anxious, or unable to sleep at night)? [id number] MIGRATION.[id number] 6 Information not available 11/26/2022 Family History Relationship Description Onset Age of this Age Resolved Age Notes LastModified by Organization Details LastModified Time Mother Neoplasm of skin [email or web address] Not available 2023 12:01:15 Unspecified Relation Malignant tumor of breast [email or web address] Not available 2023 12:01:15 Unspecified Relation Diabetes mellitus [id number] Not available 11/26/2022 18:00:21 Medical History Condition Response MRSA N SLEEP APNEA N ALLERGIES/HAYFEVER N LUNG DISEASE/DISORDER N INSOMNIA N COPD N RADIATION / CHEMOTHERAPY N HIGH CHOLESTEROL / HYPERLIPIDEMIA N EYE PROBLEMS Y HYPERTHYROIDISM N BLOOD DISEASES N EAR OR HEARING PROBLEMS N HYPOTHYROIDISM N DEPRESSION (INCLUDING POST ) N BACK / NECK PROBLEMS Y HAVE YOU BEEN HOSPITALIZED OR SEEN IN [facility] ER IN THE PAST YEAR ? N STROKE/TIA N ULCERS N OBESITY N ANEURYSM N HISTORY WITH COMPLICATIONS WITH ANESTHES IA ? N URINARY/BLADDER/KIDNEY PROBLEMS Y USE OF BLOOD THINNERS N NO SIGNIFICANT PAST MEDICAL HISTORY N SKIN PROBLEMS Y DIABETES, TYPE N PARATHYROID DISEASE N ENT N SEASONAL ALLERGIES N HEARTBURN / REFLUX N HEPATITIS / LIVER DISEASE N SLEEP DISORDER N SEIZURES/EPILEPSY N HEADACHES/MIGRAINES Y CHF N PACEMAKER N DIZZINESS N HEART DISEASE/HEART PROBLEMS N AIDS/HIV N FRACTURES N HYPERTENSION N CANCER: SPECIFY N TOURETTE'S N ANXIETY DISORDER Y BLOOD TRANSFUSION N ANEMIA/BLOOD DISORDER N ANESTHESIA COMPLICATIONS N CHRONIC EAR INFECTIONS N TUBERCULOSIS N Gynecological History Statement/Question Response Menses Monthly Y Abnormal Pap Y Date of Last Pap 05/24/2020 Current Control Method None Sexually Active? Y Obstetrics History GPAL:G 0 P 0 0 0 0 Immunizations Vaccine Type Date Status Note Provider Nam e and Address Organization Details Recorded Time Tdap 02/17/2022 completed Not Available [facility] 11/26/2022 18:01:24 Tdap 04/06/2017 completed Not Available [facility] 11/26/2022 18:01:24 Past Encounters Encounter ID Performer Location Encounter Start Date Encounter Closed Date Diagnosis/Indication Diagnosis SNOMED-CT Code Diagnosis ICD10 Code Diagnosis Note [id number] [facility] _ATHENA_M IGRATION_ DEFAULT_1 _1 , 03/29/2021 00:00:00 03/29/2021 11:18:49 [id number] AILEEN Aguirre S[facility] [place] [address] [facility] [place] [address] 06/27/2021 00:00:00 06/27/2021 12:50:24 [id number] AILEEN Aguirre [facility] [place] [address] [place] [address] 2021 00:00:00 2021 14:51:44 [id number] [facility] [place] [address] [place], [place] [address] 11/25/2021 00:00:00 11/25/2021 17:57:51 [id number] Gregory Julien MD [facility] [place] [address] [place] [address] 02/17/2022 00:00:00 02/17/2022 18:27:06 [id number] [facility] [place] [address] [place] [address] 06/26/2022 00:00:00 06/26/2022 16:33:04 [id number] AILEEN Aguirre [facility] [place] [address] [place] [address] 10/21/2022 00:00:00 10/28/2022 16:50:31 [id number] Prem Nunn DPM [facility] [place] [address] [place] [address] 03/21/2024 14:39:41 03/23/2024 12:10:56 Peroneal tendinitis of left lower limb 4283132134 32393 M76.72 Pain in left foot 270210 1366 55345 M79.508 [id number] Prem Nunn DPM [facility] [place] [address] [place] [address] 04/12/2024 12:00:08 04/14/2024 10:20:23 Pain in left foot 1213377333 05139 M79.672 secondary to abovepossi ble MRI if not improved in 3-4 weeks Peroneal t endinitis of left lower limb 6325763224 82416 M76.72 p tertius tendonitis , left footnot better with stretching at home and riceRX cam BOOT todayinjec tion and insertion of P Tertius left foot fifth metatarsal Health Concerns Section Related Observation LastModified by Organization Detai ls LastModified Time None Recorded Concern Status LastModified by Organization Details LastModified Time None Recorded Advance Directives Directive N: Payers Insurance Date Sequence Insurance Name Policy Number Policy Garcia Covered Member ID Garcia Member ID Guarantor Name 04/30/2024 1 [facility] [id number] Arlette Cano [id number] Arlette Cano OBGyn Episode No OBEpisode recorded.
--- OUTSIDE RECORDS SUMMARY | 2025-04-24 11:43 | XMS_ITS | Clinical Summary ---
Author Organization [facility] Address [address] [place] [address] Care Team Providers Care Collar Padder Blindstitch Name Role Phone Unavailable Primary Care Provider Unavailabl e Source Comments [facility],non-owned Affiliates and Associated Physician Practices is amultiple site organization consisting of ambulatory clinics and hospital sitesin [place], [place], [place] and [place]. This disclosure is being madepursuant to the Care Everywhere program and may not contain all information available regarding this patient. Last updated 18.[facility] Social History Tobacco Use Types Packs/Day Years Used Date Smoking Tobacco: Never Assessed Comments Unknown Sex and Gender Information Value Date Recorded Sex Assigned at Not on file Legal Sex Female 1:18 PM CDT Gender Identity Not on file Sexual Orientation Not on file Plan of Treatment Health Maintenance Due Date Last Done Comments HIV SCREENING 2011 HEPATITIS C SCREENING 07/22/2014 DTAP/TDAP/TD VACCINES (1 - Tdap) 2015 HEPATITIS B VACCINE (1 of 3 - 19+ 3-dose series) 2015 HPV VACCINE (1 - 3-dose SCDM series) 2023 COVID-19 VACCINE (1 - 2023-2 5 season) 2024 DEPRESSION SCREENING 09/28/2024 INFLUENZA VACCINE (#1) 2025 ZOSTER VACCINE (1 of 2) 2046 HIB VACCINE Aged Out No longer eligi ble based on patient's age to complete this topic MENINGOCOCCAL (Group B) VACC INE SHARED DECISION-MAKING Aged Out No longer eligibl e based on patient's age to complete this topic MENINGOCOCCAL GROUPS A/C/Y/W VACCINE Aged Out No longer eligible b ased on patient's age to complete this topic PNEUMOCOCCAL VACCINE Aged Out No long er eligible based on patient's age to complete this topic Insurance
--- OUTSIDE RECORDS SUMMARY | 2025-04-24 11:43 | XMS_ITS | Data Portability ---
Author Organization [facility] Address [address] [place] [address] Care Team Providers Care Safety And Health Consultant Name Role Phone ELI BELL Primary Care Provider Unavailab le Assessment No assessment recorded. Plan of Treatment Reminders Order Date Submit Date Provider Last Modified By Organization Details Last Modified Time Details Appointments None record ed. Lab None record ed. Referral None record ed. Procedures None record ed. Surgeries None record ed. Imaging None record ed. Medication Orders None record ed. Patient TargetsNo targets recorded. Patient Instructions Encounter Date Encounter Id Patient Instructions Last Modified By Organization Details Last Modified Time 04/06/2024 [id number] A healthy lifestyle: care instructions [email or web address] Not available 04/26/2024 17:58:30 Reason for Referral None Reported. Results Created Date Observation Date Name Description Value Unit Range Abnormal Flag Note LastModifiedBy Organization Detail LastModifiedTime 08/23/20 24 08/23/2024 pap test, thinp rep, cervi hayley Pap negati ve Not Available Not Available 15:16:34 Result Notes None recorded. Problems Name Problem SNOMED Code Status Onset Date Resolution Date Notes Provider Name and Address Organization Details Recorded Time Obesity 299009140 Active 024 AILEEN Aguirre Attn: Accounting ,[address] [facility], [place], [address] , [facility] 17:57:01 Body mass index 30+ - obesity 173652099 Active 024 AILEEN Aguirre Attn: Accounting ,[address] [facility], [place], [address] , [facility] 17:57:02 Problem Notes None recorded. Medical Equipment None Reported. Allergies No known drug allergies Medications Name Sig Start Date Stop Date Status Note LastModified by Organization Details LastModified Time phentermine 30 mg capsule TAKE ONE CAPSULE BY MOUTH DAILY 04/06 completed Not Available Not Available Not Available diclofenac sodium 75 mg tablet,delay ed release TAKE 1 TABLET BY MOUTH TWICE A DAY WITH MEALS active don't take it Not Available Not Available Not Available Blisovi Fe 10/17 (28) 1 mg-20 mcg (21)/75 mg (7) tablet TAKE 1 TABLET BY MOUTH EVERY DAY 04/06 completed Not Available Not Available Not Available Vitals Date Recorded Systolic And Diastolic Systolic And Diastolic Provider Name and Address Organization Details Last Updated DateTime 04/06/2024 114/86 mm[Hg] 108/80 mm[Hg] AILEEN Aguirre Attn: Accounting,[address] [place], [address], [facility] 04/06/2024 15:18:49 Date Recorded Body height Respiratory rate Body mass index (BMI) Body weight Oxygen saturation Oxygen saturation in Arterial blood by Pulse oximetry Heart rate Systolic And Diastolic Systolic And Diastolic Provider Name and Address Organization Details Last Updated DateTime 170.18 cm 20 /min 36.2 kg/m2 243202. 05 g 99 % 99 % 88 /min 142/90 mm[Hg] 136/88 mm[Hg] Maco Bansal MA [facility] 14:58:09 Social History Question Answer Notes LastModified by Organizat ion Details LastModified Time Tobacco Smoking Status Never Smoker Maco Bansal MA null, [facility] 04/06/2024 14:50:23 Do You Have An Advance Directive? No Information n ot available 04/06/2024 Are You Blind Or Do You Have Difficulty Seeing? No Information n ot available 04/06/2024 What Is Your Level Of Caffeine Consumption? Moderate Information not available 04/06/2024 In The 14 Days Before Symptom Onset, Have You Had Close Contact With A Laboratory-confirm ed COVID-19 While That Case Was Ill? No Information n ot available 04/05/2024 In The 14 Days Before Symptom Onset, Have You Had Close Contact With A Person Who Is Under Investigation For COVID-19 While That Person Was Ill? No Information not available 04/05/2024 Have You Been To An Area Known To Be High Risk For COVID-19? No Information not available 04/05/2024 Are You Deaf Or Do You Have Serious Difficulty Hearing? No Information not available 04/06/2024 What Type Of Diet Are You Following? REGULAR Information n ot available 04/06/2024 Are There Any Guns Present In Your Home? No Information not available 04/06/2024 What Was The Date Of Your Most Recent Tobacco Screening? 04/06/2024 Information not available 04/06/2024 Do You Use Your Seat Belt Or Car Seat Routinely? Yes Information not available 04/05/2024 Do You Have Smoke And Carbon Monoxide Detectors In Your Home? Yes Information not available 04/05/2024 Do You Use Sunscreen Routinely? Yes Information not available 04/06/2024 Has Tobacco Cessation Counseling Been Provided? Yes Information not available 04/05/2024 On What Date Was Tobacco Cessation Counseling Provided? 04/06/2024 Information not available 04/06/2024 Sex: Female Functional Status Question Answer Note LastModified by Organizat ion Details LastModified Time Do you use any illicit or recreational drugs? No Information not available 04/06/2024 Do you or have you ever used any other forms of tobacco or nicotine? No Information not available 04/06/2024 What is your level of alcohol consumption? Occasional Information not available 04/06/2024 Are you able to care for yourself independently? Yes Information not available 04/06/2024 What is your exercise level? Occasional Information not available 04/06/2024 Mental Status None recorded. Family History Nothing Reported. Medical History Condition Response Coronary Artery Disease N Other N High Blood Pressure N Atrial Fibrillation N Kidney or Bladder Problems N Thyroid Problems N GI Problems N Depression N COPD N Blood Clots N Have you had a mammogram in the last yea r? N Skin Problems N Anemia N Heart Attack ([place]) N Anxiety Disorder N Diabetes N Muscle, Joint, or Bone Problems N Seizures/Epilepsy N Have you had a colonoscopy in the last 1 0 years? N Acid Reflux (GERD) N Cancer N Stroke N Asthma N Allergies N Have you had a PSA blood test in the las t year? N High Cholesterol N Hepatitis N Liver Disease N Headaches N Osteoporosis N Heart Failure N Gynecological History Statement/Question Response Menses Monthly N Current Control Method Other Obstetrics History GPAL:G 1 P 1 0 0 1 Type Value Full Term 1 Induced 0 Spontaneous 0 Premature 0 Living 1 Total 1 Past Encounters Encounter ID Performer Location Encounter Start Date Encounter Closed Date Diagnosis/Indication Diagnosis SNOMED-CT Code Diagnosis ICD10 Code Diagnosis Note [id number] Gregory Julien MD [facility] [address] [place] [address] 04/06/2024 14:29:57 04/06/2024 15:22:09 Adult health examination 418274788 Z00.00 Annual wellness exam completed Irregular periods 713504 07 N92.6 Patient reports that she is having irregular menstrual cycles at this time. She does have gynecology that she follows with for this. Pain in left foot 911980 8186 80040 M79.672 Patient does have pain in her left foot and she is currently taking diclofenac 75 mg twice daily with meal. She is seeing anode builder , Dr. Garibay for this pain and undergoing current evaluation . Body mass index 30+ - obesity 161483032 Z68.36 BMI is 36.2 Obesity 911847978 E66.8 discussed healthy diet, exercise, controllin g carbohydra troy and added sugars in the diet Health Concerns Section Related Observation LastModified by Organization Detai ls LastModified Time None Recorded Concern Status LastModified by Organization Details LastModified Time None Recorded Advance Directives Directive N: Payers Insurance Date Sequence Insurance Name Policy Number Policy Garcia Covered Member ID Garcia Member ID Guarantor Name 04/29/2024 1 [facility] [id number] Arlette Cano [id number] Arlette Cano OBGyn Episode No OBEpisode recorded.
--- OUTSIDE RECORDS SUMMARY | 2025-04-24 11:43 | XMS_ITS | Encounter Summary ---
Author Organization [facility] Address [address] [place] [address] Care Team Providers Care Mechanical Ordnance Assembler Name Role Phone Unavailable Primary Care Provider Unavailabl e Encounter Details Date Type Department Care Team (Late st Contact Info) Description 02/27/2022 Lab Requisition [facility] D[facility] Lab [address] [facility] [place] [address] Bill Paul Jr., MD [address] [place] [address] Social History Tobacco Use Types Packs/Day Years Used Date Smoking Tobacco: Never Assessed Comments Unknown Sex and Gender Information Value Date Recorded Sex Assigned at Not on file Legal Sex Female 1:18 PM CDT Gender Identity Not on file Sexual Orientation Not on file documented as of this encounter Plan of Treatment Not on file documented as of this encounter Procedures Procedure Name Priority Date/Time Associated Diagnosis Comments DERMATOPATHOLOGY Routine 02/26/2022 12:0 0 AM CDT documented in this encounter Results * DERMATOPATHOLOGY (02/26/2022 12:00 AM CDT) Case Report Dermatopathology Report Case: [id number] Authorizing Provider: Bill Paul Jr., MD Collected: 02/26/2022 12:00 AM Ordering Location: [facility] Lab Received: 02/27/2022 01:34 PM Pathologist: Ulisses Zuniga MD Specimen: Skin, middle sternum 2 3:42 PM CDT DERMATOPATHOLOGY LABORATORY Final Diagnosis Specimen A. SKIN, middle sternum: INTRADERMAL MELANOCYTIC NEVUS (D22.5) 2 3:42 PM CDT DERMATOPATHOLOGY LABORATORY at 1542 CDT Clinical History Spitz nevus vs dysplastic nevus vs benign nevus. . 2 3:42 PM CDT DERMATOPATHOLOGY LABORATORY Gross Description Specimen A: Received is one formalin filled container labeled with the patient's name and designated middle sternum. The specimen consists of a shave biopsy measuring [id number]. Jar 0. 2 3:42 PM CDT DERMATOPATHOLOGY LABORATORY Microscopic Description Specimen A. SKIN, middle sternum: There are nests of cytologically bland melanocytes within the dermis that mature with depth. 2 3:42 PM CDT DERMATOPATHOLOGY LABORATORY Disclaimer An external and internal positive and negative controls are appropriate for the histochemical, immunohistochemical and immunofluorescence stain(s) in this case (if any), except where stated explicitly. The performance characteristics of the stain(s) cited in this report were developed and its performance characteristic determined by the Dermatopathology Laboratory at [facility], directed by Dr. Jan Zuniga. These tests need not be, and therefore are not, approved by the [place] Food and Drug Administration. The tests are used for clinical purposes. Billing Codes Specimen Charges Stain Charges 46650 1 2 3:42 PM CDT DERMATOPATHOLOGY LABORATORY Embedded Images 2 3:42 PM CDT DERMATOPATHOLOGY LABORATORY Pathology/Cytolog y TISSUE SPECIMEN FROM SKIN / Unknown 02/26/2022 02/27/2022 1:34 PM CDT Bill Paul Jr., MD LAB - PATHOLOGY/CYTOLOG Y ORDERABLES Final Result DERMATOPATHOLOGY LABORATORY [facility] - Department of Dermatology [address] [place] [address], [facility] [phone] documented in this encounter Visit Diagnoses Not on filedocumented in this encounter
[2025-04-24 11:56] VITALS: BMI 35.9
[2025-04-24 11:59] LABS: Add Urine Microscopic? YES; Appearance Urine Clear (Clear); Glucose Urine UA Negative (Negative); Leukocyte Esterase Ur Trace LEU/UL (Negative); Nitrate Urine Negative (Negative); Non Pathogenic Casts 0-2; Specific Grav Ur 1.025 (1.001-1.035)
[2025-04-24 12:00] VITALS: BP 108/56; PULSE 99
[2025-04-24 12:15] VITALS: BP 102/58; PULSE 92
[2025-04-24 12:30] VITALS: BP 121/72; PULSE 100
--- NOTE | 2025-04-24 12:31 | PM.OBTRLD ---
OB - Triage/Final Diagnosis Visit Information Date of evaluation: 04/24/25 Reason for evaluation: threatened labor Comments/Additional reasons for admission: I have assessed the risk for this patient, Arlette Cano, and determined that she would benefit from observation care. Evaluation Laboratory results: Laboratory Tests 04/24/25 11:38 Urine Color Dark yellow Urine Appearance Clear Urine pH 6.0 Ur Specific Shoshoni 1.025 Urine Protein Trace Urine Glucose (UA) Negative Urine Ketones Trace H Ur Blood (Man) Negative Urine Nitrate Negative Urine Bilirubin Negative Urine Urobilinogen 1.0 Ur Leukocyte Esterase Trace H Urine RBC 3-5 H Urine WBC 6-10 H Ur Squamous Epith Cells Moderate Urine Bacteria 2+ H Urine Casts 0-2 Vital signs: Vital Signs - 24 hr 04/24/25 12:00 04/24/25 12:15 04/24/25 12:30 Pulse Rate 99 92 100 Blood Pressure 108/56 L 102/58 L 121/72
[2025-04-24 12:40] LABS: Hematocrit 35.2 % (37.0-47.0); Hemoglobin 11.6 g/dL (12.0-15.0); Immature Granulocyte Percent A 0.6 % (0-0.5); Lymphocytes Absolute Auto 1.15 K/mm3 (0.9-3.2); Mean Corpuscular HGB Conc 33.0 g/dl (32-36); Mean Corpuscular Hemoglobin 28.6 pg (26-34); Mean Corpuscular Volume 86.7 fl (80-100); Nucleated Red Blood Cells Absolute Auto 0.000 K/mm3 (0.0-0.012); Nucleated Red Blood Cells Perc 0.0 % (0.0-0.2); Platelet Count Result 233 k/mm3 (150-375); Red Blood Count 4.06 M/mm3 (4.2-5.4); White Blood Count 11.4 K/mm3 (4.5-10.0)
== END 2025-04-24 12:53 | disposition home or self-care (01) ==
PROVIDERS: Admitting Provider Obstetrics & Gynecology; PCP Physician Assistant; Visit Provider Obstetrics & Gynecology
DX: O47.02 False labor before 37 completed weeks of gestation, second trimester (principal); Z3A.25 25 weeks gestation of pregnancy
CPT/HCPCS: 36415; 81001; 85025; G0378; G0379

== ENCOUNTER 2025-07-19 19:07 | Inpatient (IN) | payer OTHER, SELFPAY ==
[2025-07-19] VITALS (50 sets, daily range): BP systolic 112–138; BP diastolic 60–83; PULSE 74–123; TEMP 36.3; O2SAT 96–100; BMI 34.5
--- OUTSIDE RECORDS SUMMARY | 2025-07-19 20:32 | XMS_ITS | Data Portability ---
[facility] Address [address] [place] [address] Care Team Providers Care Purse Seiner Name Role Phone ELI BELL Primary Care [...] By Organization Details Last Modified Time 04/06/2024 [id number] A healthy lifestyle: care instructions [email or web address] Not [...] and Address Organization Details Recorded Time Obesity 996092762 Active 024 AILEEN Aguirre Attn: Accounting ,[address] [facility], [place], [address] , [facility] 17:57:01 Body mass index 30+ - obesity 925543556 Active 024 AILEEN Aguirre Attn: Accounting ,[address] [facility], [place], [address] , [facility] 17:57:02 Problem Notes None recorded. Medical Equipment None Reported. Allergies No known drug allergies Medications Name Sig Start Date Stop Date Status Note LastModified by Organization Details LastModified Time azithromyci n 250 mg tablet TAKE 2 TABLETS BY MOUTH TODAY, THEN TAKE 1 TABLET DAILY FOR 4 DAYS DIRECTED active Not Available Not Available No t Available metronidazo le 0.75 % (37.5 mg/5 gram) vaginal gel INSERT ONE APPLICATO RFUL VAGINALLY AT BEDTIME FOR 5 DAYS 07/16 completed Not Available Not Available Not Available ondansetron HCl 4 mg tablet TAKE 1 TABLET BY MOUTH EVERY 6 HOURS NEEDED active Not Available Not Available No t Available phentermine 30 mg capsule TAKE ONE CAPSULE BY MOUTH DAILY 04/06 completed Not Available Not Available Not Available diclofenac sodium 75 mg tablet,courtney yed release TAKE 1 TABLET BY MOUTH TWICE A DAY WITH MEALS active don't take it Not Available Not Available Not Available letrozole 2.5 mg tablet TAKE 2 TABLETS BY MOUTH ONCE A DAY ON DAYS 5 THROUGH 9 OF CYCLE active Not Available Not Available No t Available sertraline 50 mg tablet TAKE 1 TABLET BY MOUTH EVERY DAY active Not Available Not Available No t Available Blisovi Fe 10/17 (28) 1 mg-20 mcg (21)/75 mg (7) tablet TAKE 1 TABLET BY MOUTH EVERY DAY 04/06 completed Not Available Not Available Not Available Vitals Date Recorded Systolic And Diastolic Systolic And Diastolic Provider Name and Address Organization Details Last Updated DateTime 04/06/2024 114/86 mm[Hg] 108/80 mm[Hg] AILENE Aguirre Attn: Accounting,[address] [place], [address], [facility] 04/06/2024 15:18:49 Date Recorded Body height Respiratory rate Body mass index (BMI) Body weight Oxygen saturation Oxygen saturation in Arterial blood by Pulse oximetry Heart rate Systolic And Diastolic Systolic And Diastolic Provider Name and Address Organization Details Last Updated DateTime 170.18 cm 20 /min 36.2 kg/m2 380171. 05 g 99 % 99 % 88 /min 142/90 mm[Hg] 136/88 mm[Hg] Maco Bansal MA [facility] 4 14:58:09 Social History Question Answer Notes LastModified by Organizat ion Details LastModified Time Tobacco Smoking Status Never Smoker Maco Bansal MA [facility] [place] [facility] 04/06/2024 14:50:23 Do You Have An Advance [...] Response Coronary Artery Disease N Other N Atrial Fibrillation N High Blood Pressure N Depression N COPD N Blood Clots N Anxiety Disorder N Muscle, Joint, or Bone Problems N Acid Reflux (GERD) N Cancer N Stroke N Headaches N Kidney or Bladder Problems N Have you had a mammogram in the last yea r? N Skin Problems N Asthma N Allergies N Have you had a PSA blood test in the las t year? N Hepatitis N High Cholesterol N Liver Disease N Thyroid Problems N GI Problems N Anemia N Heart Attack ([place]) N Diabetes N Seizures/Epilepsy N Have you had a colonoscopy in the last 1 0 years? N Heart Failure N Osteoporosis N Gynecological History Statement/Question Response Menses Monthly N Current Control Method Other Obstetrics History GPAL:G 1 P 1 0 0 1 Type Value Full Term 1 Induced 0 Spontaneous 0 Premature 0 Living 1 Total 1 Past Encounters Encounter ID Performer Location Encounter Start Date Encounter Closed Date Diagnosis/Indication Diagnosis SNOMED-CT Code Diagnosis ICD10 Code Diagnosis IMO Codes Diagnosis Note [id number] Gregory Julien MD [place] [id number] [address] 04/06/2024 14:29:57 04/06/2024 15:22:09 Adult health examination 210400437 Z00.00 Annual wellness exam completed Irregular periods 254402 07 N92.6 Patient reports that she is having irregular menstrual cycles at this time. She does have gynecology that she follows with for this. Pain in left foot 000040 9795 95915 M79.672 Patient does have pain in her left foot and she is currently taking diclofenac 75 mg twice daily with meal. She is seeing full time , Dr. Garibay for this pain and undergoing current evaluation . Body mass index 30+ - obesity 111143081 Z68.36 BMI is 36.2 Obesity 415171033 E66.8 discussed healthy diet, exercise, controllin g carbohydra troy and added sugars in the diet Health Concerns Section Related Observation LastModified by Organization Detai ls LastModified Time None Recorded Concern Status LastModified by Organization Details LastModified Time None Recorded Advance Directives Directive N: Payers Insurance Date Sequence Insurance Name Policy Number Policy Garcia Covered Member ID Garcia Member ID Guarantor Name 04/29/2024 1 [facility] [id number] [facility] [id number] Notes Date Note Type Note Provider Name and Address Organization Details Recorded Time 04/06/2024 text/html Patient is here for annual wellness exam. She states that she does have some irregular periods at this time ; she also has some pain in her left foot. She is up-to-date on lab work from the last office and not currently in need AILEEN Aguirre Attn: Accounting,[address] [facility], [place], [address], [place] [facility] 04/26/2024 17:58:52 OBGyn Episode No OBEpisode recorded.
--- OUTSIDE RECORDS SUMMARY | 2025-07-19 20:32 | XMS_ITS | Encounter Summary ---
Author Organization [facility] Address [address] [place] [address] Care Team Providers Care Plaster Whittler Name Role Phone Unavailable Primary Care Provider Unavailabl e Encounter Details Date Type Department Care Team (Late st Contact Info) Description 02/27/2022 Lab Requisition [facility] DermPath Lab [address] [facility] [place] [id number] Bill Paul Jr., MD [address] [facility] [address] [place] [address] Social History Tobacco Use Types Packs/Day Years [...] AM CDT) Case Report Dermatopathology Report Case: [id number] Authorizing Provider: Bill Paul Jr., MD Collected: 02/26/2022 12:00 AM Ordering Location: [facility] Lab Received: 02/27/2022 01:34 PM Pathologist: [...] specimen consists of a shave biopsy measuring [id number]. Jar 0. 2 3:42 PM CDT DERMATOPATHOLOGY [...] characteristic determined by the Dermatopathology Laboratory at [facility], directed by Dr. Jan Zuniga. These tests need not be, and therefore are not, approved by the [place] Food and Drug Administration. The tests are used for clinical purposes. Billing Codes Specimen Charges Stain Charges 68813 1 2 3:42 PM CDT DERMATOPATHOLOGY LABORATORY Embedded Images 2 3:42 PM CDT DERMATOPATHOLOGY LABORATORY Pathology/Cytolog y TISSUE SPECIMEN FROM SKIN / Unknown 02/26/2022 02/27/2022 1:34 PM CDT Bill Paul Jr., MD LAB - PATHOLOGY/CYTOLOG Y ORDERABLES Final Result DERMATOPATHOLOGY LABORATORY [facility] - Department of Dermatology [address] [place] [address], [facility] [phone] documented in this encounter Visit Diagnoses Not on filedocumented in this encounter
--- OUTSIDE RECORDS SUMMARY | 2025-07-19 20:32 | XMS_ITS | Clinical Summary ---
Author Organization [facility] [employer] Address [address] [place] [address] Care Team Providers Care Storage Manager Name Role Phone Unavailable Primary Care Provider Unavailabl e Source Comments [facility] [employer],non-owned Affiliates and Associated Physician Practices is amultiple site organization consisting of ambulatory clinics and hospital sitesin [place], [place], [place] and [place]. This disclosure is being madepursuant to the Care Everywhere program and may not contain all information available regarding this patient. Last updated 18.[facility] [employer] Social History Tobacco Use Types Packs/Day Years [...] VACCINE (1 - 3-dose SCDM series) 2023 DEPRESSION SCREENING 09/28/2024 COVID-19 VACCINE (1 - 2023-2 5 season) 2025 INFLUENZA VACCINE (#1) 2025 ZOSTER VACCINE (1 [...]
--- OUTSIDE RECORDS SUMMARY | 2025-07-19 20:33 | XMS_ITS | Data Portability ---
Author Organization [place] - S [employer], Main Office Address [address] [place] [address] Care Team Providers Care Cocoa Roaster Name Role Phone ELI BELL Primary Care Provider [phone] ELI BELL Referring Provider [phone] Assessment Encounter Date Assessment Date Assessment LastModified by Organization Details LastModified Time 03/21/2024 03/21/2024 This note is dictated and transcribed by [employer]. Retail Banking Manager variances may occur. Despite proofreading, typographical errors may occur. Occasional wrong-word or 'dyayu-e-yjyk' substitutions may have occurred due to the inherent limitations of voice recording. Read the chart carefully and recognize, using context, where substitutions have occurred. [email or web address] Not available 03/21/2024 15:04:33 04/12/2024 04/12/2024 This note is dictated and transcribed by [employer]. Retail Banking Manager variances may occur. Despite proofreading, typographical errors may occur. Occasional wrong-word or 'opfni-o-puod' substitutions may have occurred due to the inherent limitations of voice recording. Read the chart carefully and recognize, using context, where substitutions have occurred. [email or web address] Not available 04/12/2024 12:19:12 Plan of Treatment Reminders Order Date Submit Date Provider Last Modified By Organization Details Last Modified Time Details Appointments None recorded. Lab None recorded. Referral None recorded. Procedures None recorded. Surgeries None recorded. Imaging XR, foot, 3 or more view 2023 024 nu 7 [facility] [place], [facility], [place], [address], 4 15:05:03 Medication Orders diclofenac sodium 75 mg tablet,courtney yed release 2023 024 [facility] #[id number], [address], [place], [address], 15:06:54 Patient TargetsNo targets recorded. Patient Instructions Encounter Date Encounter Id Patient Instructions Last Modified By Organization Details Last Modified Time 03/21/2024 [id number] peroneal tendon strain: rehab exercises teodoro Not available 03/21/2024 15:07:09 learning about rice (rest, ice, compression, and elevation) teodoro Not available 03/21/2024 15:05:03 Reason for Referral None Reported. Results Created Date Observation Date Name Description Value Unit Range Abnormal Flag Note LastModifiedBy Organization Detail LastModifiedTime 03/21/20 XR, foot, 3 or more view No observ ation record ed. [email or web address] [facility] [place] [facility] [place] [address], [place], [address], 03/21/2024 15:05:01 Result Notes None recorded. Problems Name Problem SNOMED Code Status Onset Date Resolution Date Notes Provider Name and Address Organization Details Recorded Time Generalize d headache 448817615 Active Not Available [facility] 3 18:00:39 Migraine 46368687 Active Not Available [facility] 3 18:00:39 Sprain of right foot 2905675318851 9106 Active 2021 Not Available [facility] 3 18:00:39 Pain in right foot 6526994831253 07 Active 2021 Not Available [facility] 3 18:00:39 Anterior chest wall pain 885647542 Active 2022 Not Available [facility] 3 18:00:39 Anxiety 47686163 Active 2022 Not Available [facility] 3 18:00:40 Peroneal tendinitis of left lower limb 5688442282163 07 Active 2023 Prem Nunn DPM [address], [address], [place], [address] , [facility] [employer] [facility] [employer] [facility] 4 15:04:18 Pain in left foot 2050196767925 07 Active 2023 Prem Nunn DPM [address], [address], [place], [address] , [employer] [facility] 4 15:04:31 Problem Notes None recorded. Procedures Surgical History Date Name Laterality Status Provider Name and Address Organization Details Recorded Time 4 Plantar Fascia Injection Left Foot completed Prem Nunn DPM [address], [address], [place], [address], [employer] [facility] [employer] [facility] 04/12/2024 12:20:57 Imaging Results None recorded. Procedure Notes None recorded. Medical Equipment None Reported. 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 51 g 118/74 mm[Hg] Not Available [facility] 3 18:00:33 Date Recorded Body height Body temperature Provider N tommy and Address Organization Details Last Updated DateTime 02/17/2022 170.18 cm 97.9 [degF] Not Available [facility] 11/26/2022 18:00:35 Date Recorded Body mass index (BMI) Body weight Heart rate Respiratory rate Body temperature Oxygen saturation Oxygen saturation in Arterial blood by Pulse oximetry Systolic And Diastolic Provider Name and Address Organization Details Last Updated DateTime 4 32.9 kg/m2 48888.4 g 78 /min 16 /min 97.7 [degF] 99 % 99 % 130/80 mm[Hg] Riri Stoll [employer] 4 14:49:02 Date Recorded Body height Provider Name an d Address Organization Details Last Updated DateTime 03/21/2024 170.18 cm Delmy Kennedy [employer] 03/21/2024 14:44:34 Date Recorded Body height Body mass index (BMI) Body weight Heart rate Systolic And Diastolic Provider Name and Address Organization Details Last Updated DateTime 04/12/2024 170.18 cm 32.9 kg/m2 19969.4 g 68 /min 118/68 mm[Hg] ELIZABETH Helms [employer] 04/12/2024 12:04:00 Date Recorded Body mass index (BMI) Body height Body weight Provider Name and Address Organization Details Last Updated DateTime 06/26/2022 32.9 kg/m2 170.18 cm 52358.4 g Not Available [employer] 11/26/2022 18:00:36 Social History Question Answer Notes LastModified by Organizat ion Details LastModified Time Tobacco Smoking Status Never Smoker Not Available [facility] 11/26/2022 18:00:18 Do You Have An Advance Directive? No [id number] Information not available 11/26/2022 If You Are , What Was Your Level Of Alcohol Consumption Prior To ? None MIGRATION.471175 9589 Information not available 11/26/2022 Do You Wear A Helmet When Biking? No MIGRATION.151781 6184 Information not available 11/26/2022 What Is Your Level Of Caffeine Consumption? Occasional MIGRATION.013668 9208 Information not available 11/26/2022 In The 14 Days Before Symptom Onset, Have You Had Close Contact With A Laboratory-confirm ed COVID-19 While That Case Was Ill? No MIGRATION.657724 7713 Information not available 11/26/2022 In The 14 Days Before Symptom Onset, Have You Had Close Contact With A Person Who Is Under Investigation For COVID-19 While That Person Was Ill? No MIGRATION.518399 1956 Information not available 11/26/2022 What Type Of Diet Are You Following? REGULAR MIGRATION.182793 6547 Information not available 11/26/2022 What Is The Highest Grade Or Level Of School You Have Completed Or The Highest Degree You Have Received? [id number] MIGRATION.599591 3016 Information not available 11/26/2022 Have There Been Any Changes To Your Family Or Social Situation? No MIGRATION.768956 1233 Information not available 11/26/2022 Are There Any Guns Present In Your Home? Yes MIGRATION.161954 5712 Information not available 11/26/2022 Do You Use Insect Repellent Routinely? Yes MIGRATION.646122 3113 Information not available 11/26/2022 Do You Have A Medical Power Of Cash Applications Coordinator? No MIGRATION.315799 0027 Information not available 11/26/2022 What Was The Date Of Your Most Recent Tobacco Screening? 03/21/2024 [email or web address] Information not available 03/21/2024 Have You Ever Been Counseled For Unhealthy Alcohol Use? No MIGRATION.802417 2979 Information not available 11/26/2022 What Is Your Relationship Status? MIGRATION.925888 4665 Information not available 11/26/2022 Do You Use Your Seat Belt Or Car Seat Routinely? Yes MIGRATION.568525 2437 Information not available 11/26/2022 Do You Have Smoke And Carbon Monoxide Detectors In Your Home? Yes MIGRATION.592677 0441 Information not available 11/26/2022 Do You Use Sunscreen Routinely? Yes MIGRATION.231034 9742 Information not available 11/26/2022 Has Tobacco Cessation Counseling Been Provided? No MIGRATION.649617 8357 Information not available 11/26/2022 Have You Recently Traveled Abroad? No MIGRATION.055057 2624 Information not available 11/26/2022 Do You Have Any Dietary Restrictions? No MIGRATION.276729 2070 Information not available 11/26/2022 Sex: Female Functional Status Question Answer Note LastModified by Organizat ion Details LastModified Time Do you use any illicit or recreational drugs? No MIGRATION.0706619 026 Information not available 11/26/2022 Do you or have you ever used any other forms of tobacco or nicotine? No MIGRATION.4262621 026 Information not available 11/26/2022 What is your level of alcohol consumption? 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 MIGRATION.0090647 026 Information not available 11/26/2022 What is your exercise level? Moderate MIGRATION.3045341 026 Information not available 11/26/2022 Mental Status Question Answer Note LastModified by Organizat ion Details LastModified Time Do you feel stressed (tense, restless, nervous, or anxious, or unable to sleep at night)? [id number] MIGRATION.[id number] 6 Information not available 11/26/2022 Family History Relationship Description Onset Age of this Age Resolved Age Notes LastModified by Organization Details LastModified Time Mother Neoplasm of skin [email or web address] Not available 2023 12:01:15 Unspecified Relation Malignant neoplasm of breast [email or web address] Not available 2023 12:01:15 Unspecified Relation Diabetes mellitus [id number] Not available 11/26/2022 18:00:21 Medical History Condition Response MRSA N SLEEP APNEA N ALLERGIES/HAYFEVER N LUNG DISEASE/DISORDER N INSOMNIA N COPD N RADIATION / CHEMOTHERAPY N HIGH CHOLESTEROL / HYPERLIPIDEMIA N EYE PROBLEMS Y HYPERTHYROIDISM N BLOOD DISEASES N EAR OR HEARING PROBLEMS N HYPOTHYROIDISM N DEPRESSION (INCLUDING POST ) N BACK / NECK PROBLEMS Y HAVE YOU BEEN HOSPITALIZED OR SEEN IN [facility] ER IN THE PAST YEAR ? N [...] Recorded Time Tdap 02/17/2022 completed Not Available [facility] 11/26/2022 18:01:24 Tdap 04/06/2017 completed Not Available [facility] 11/26/2022 18:01:24 Past Encounters Encounter ID Performer Location Encounter Start Date Encounter Closed Date Diagnosis/Indication Diagnosis SNOMED-CT Code Diagnosis ICD10 Code Diagnosis IMO Codes Diagnosis Note [id number] [facility]_M IGR[facility]_ DEFAULT_1 _1 , 03/29/2021 00:00:00 03/29/2021 11:18:49 [id number] AILEEN Aguirre [facility] [place] [address] [place] [address] 06/27/2021 00:00:00 06/27/2021 12:50:24 [id number] AILEEN Aguirre [facility] [place] [address] [place] [address] 2021 00:00:00 2021 14:51:44 [id number] [facility] [place] [address] [place], [place] [address] 11/25/2021 00:00:00 11/25/2021 17:57:51 [id number] Gregory Julien MD [facility] [place] [address] [place], [place] [address] 02/17/2022 00:00:00 02/17/2022 18:27:06 [id number] [facility] [place] [address] [place] [address] 06/26/2022 00:00:00 06/26/2022 16:33:04 [id number] AILEEN Aguirre [facility] [place] [address] [place] [address] 10/21/2022 00:00:00 10/28/2022 16:50:31 [id number] Prem Nunn DPM [facility] [place] [address] [place] [address] 03/21/2024 14:39:41 03/23/2024 12:10:56 Peroneal tendinitis of left lower limb [id number] 18996 M76.72 Pain in left foot 383395 3250 44113 M79.842 [id number] Prem Nunn DPM [facility] [place] [address] [facility] [address] [place] [address] 04/12/2024 12:00:08 04/14/2024 10:20:23 Pain in left foot 1976459133 02180 M79.672 secondary to abovepossi ble MRI if not improved in 3-4 weeks Peroneal t endinitis of left lower limb 0279848443 17800 M76.72 p tertius tendonitis , left footnot [...] Garcia Member ID Guarantor Name 04/30/2024 1 [facility] [id number] Arlette Cano [id number] Arlette Cano Notes Date Note Type Note Provider Name and Address Organization Details Recorded Time 03/21/2024 text/html . Patient is a 28-year-old female who presents the office with complaints of left foot pain. Patient states that she has pain on the outside of her foot she states she can comfortably walk [employer]. Patient states the pain is constant throbbing and aching in nature she rates it as 4/10. Patient states it does improve with rest. 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 Patient states shortly after she became and was unable to be treated after that. Patient denies any other complaints. Prem Nunn DPM [address], [place], [address], [employer] 03/21/2024 15:11:14 04/12/2024 text/html . Patient is a 28-year-old female she returns for follow-up on left foot pain secondary to peroneal tendinitis. Patient states she has been doing stretching and icing to the foot she continues have pain with weight-bearing. Patient denies any significant improvement. I did discuss the options of an injection which she elected to pursue today as well as a Cam boot for offloading. Patient states she may not be very compliant with use of the cam boot. Patient denies any other complaints. I did recommend that she is compliant with Cam boot as this will help to reduce pressure and inflammation of foot as well as helped offload and per vent overuse of the foot. Prem Nunn DPM [address] [employer], [place], [address], [employer] 04/12/2024 12:23:17 OBGyn Episode No OBEpisode recorded.
[2025-07-19] MEDS: DINOPROSTONE 10 MG VAG INSERT VAGINAL (20:35)
[2025-07-19 21:00] LABS: Hematocrit 37.1 % (37.0-47.0); Hemoglobin 11.8 g/dL (12.0-15.0); Immature Granulocyte Percent A 0.6 % (0-0.5); Lymphocytes Absolute Auto 2.66 K/mm3 (0.9-3.2); Mean Corpuscular HGB Conc 31.8 g/dl (32-36); Mean Corpuscular Hemoglobin 25.1 pg (26-34); Mean Corpuscular Volume 78.9 fl (80-100); Nucleated Red Blood Cells Absolute Auto 0.000 K/mm3 (0.0-0.012); Nucleated Red Blood Cells Perc 0.0 % (0.0-0.2); Platelet Count Result 284 k/mm3 (150-375); Red Blood Count 4.70 M/mm3 (4.2-5.4); White Blood Count 13.4 K/mm3 (4.5-10.0)
[2025-07-19 21:07] LABS: Add Urine Microscopic? YES; Appearance Urine Cloudy (Clear); Glucose Urine UA Negative (Negative); Leukocyte Esterase Ur Negative LEU/UL (Negative); Nitrate Urine Negative (Negative); Non Pathogenic Casts 0-2; Specific Grav Ur 1.020 (1.001-1.035)
--- NOTE | 2025-07-19 21:12 | LDADM ---
This patient, Arlette Cano, was admitted to Labor/Delivery/Recovery 108 on 07/19/25 at 19:07. Plans for labor, pain management and were discussed with patient. Patient/family oriented to hospital policies and general routines including ID bracelet, bed and alarms, visiting hours, pain management, procedures, bathroom and other care routines, personal items, smoking policy, room service/diet and guest tray routines, infant security routines, and visiting hours. Patient/Family are encouraged to report perceived risks to care and to ask questions if they do not understand what they are told or what they should do. See OBIX for further documentation.
[2025-07-19 21:13] LABS: Alanine Aminotransferase 35 U/L (6-35); Albumin Level 3.6 g/dL (3.5-5.1); Alkaline Phosphatase 202 U/L (38-126); Anion Gap 9 mmol/L (4-12); Aspartate Amino Transferase 37 U/L (14-36); Bilirubin,Total 0.9 mg/dL (0.2-1.3); Blood Urea Nitrogen 13 mg/dL (7-17); Calcium 9.3 mg/dL (8.4-10.2); Carbon Dioxide 20 mmol/L (22-30); Chloride 104 mmol/L (98-107); Estimated Glomerular Filt Rate > 60; Glucose 94 mg/dL (65-110); Potassium 3.9 mmol/L (3.4-5.0); Sodium 133 mmol/L (137-145); Total Protein 7.4 g/dL (6.3-8.2); Uric Acid 4.3 mg/dL (2.5-7.5)
[2025-07-19 21:15] LABS: Total Protein Urine Random 9 mg/dL; Ur Ttl Prot Creatinine Ratio 0.08 mg/mg (0-0.20)
[2025-07-19 21:40] LABS: Syphilis IgG/IgM Antibody Non-Reactive (Nonreactive)
[2025-07-19] MEDS: ZOLPIDEM TARTRATE (*CRX) 5 MG TABLET PO (23:34)
[2025-07-20] VITALS (187 sets, daily range): BP systolic 105–151; BP diastolic 44–118; PULSE 71–223; RESP 18–20; TEMP 36.2–37.2; O2SAT 68–100
[2025-07-20] MEDS: LACTATED RINGERS 1,000 ML 125 ML IV CONT ×2 (05:40→09:23)
[2025-07-20] MEDS: OXYTOCIN 30 UNITS/NS 500 ML 30 UNITS/500 ML BAG IV CONT (05:40)
--- NOTE | 2025-07-20 06:41 | PM.IMHP ---
H&P: HPI History of Present Illness Date/Time: 07/20/25 06:41 Chief Complaint: Gestational hypertension at term Narrative: This is a 29-year-old 2 para 1 whose last menstrual period was 10/16/2024, EDC is 08/02/2025, confirmed by early 1st trimester ultrasound presents at 38 weeks gestation for induction of labor secondary to elevated blood pressures. PH labs were normal her blood pressures have been worsening over the last few weeks. She is negative for group B strep and she passed her diabetic testing PMFSH Past Medical History Medical History Obesity (BMI 30-39.9) History of anxiety Family History Family History Other No pertinent family history Social History Social History Smoking status: Never smoker Second hand tobacco smoke exposure: No Alcohol intake: current Substance use: never Substance use type: does not use Lack of Transportation: No Lack of Food: Never True Current Housing: I Have Housing Concerned About Future Housing: No Difficulty Paying Gas/Electric Bills: No Difficulty Paying for Meds: No Currently Unemployed: No Education: Bachelor's Degree Difficulty w/ Childcare or Family Care: No Gender identity (if verbalized by the patient): Female Spiritual care concerns: No Meds Home Medications and Allergies Home Medications ?Medication ?Instructions ?Recorded ?Confirmed ?Type prenat.vits,hayley,dgk-zyft-pacfa 1 tablet PO HS 04/08/22 07/11/25 History Probiotic and Prebiotic 07/19/25 History Unisom (doxylamine) 07/19/25 History Allergies Allergy/AdvReac Type Severity Reaction Status Date / Time No Known Allergies Allergy Verified 07/19/25 22:26 Vital Signs Vital Signs - 24 hr 07/19/25 19:31 07/19/25 19:46 07/19/25 20:33 Temperature Pulse Rate 96 83 Blood Pressure 123/60 130/82 Pulse Oximetry 98 Oxygen Delivery 07/19/25 20:38 07/19/25 20:43 07/19/25 20:48 Temperature Pulse Rate Blood Pressure Pulse Oximetry 100 98 99 Oxygen Delivery 07/19/25 20:51 07/19/25 20:53 07/19/25 20:58 Temperature Pulse Rate 81 Blood Pressure 130/83 Pulse Oximetry 99 99 Oxygen Delivery 07/19/25 21:01 07/19/25 21:03 07/19/25 21:08 Temperature Pulse Rate 84 Blood Pressure 138/77 Pulse Oximetry 99 99 Oxygen Delivery 07/19/25 21:13 07/19/25 21:18 07/19/25 21:23 Temperature Pulse Rate Blood Pressure Pulse Oximetry 99 100 99 Oxygen Delivery 07/19/25 21:28 07/19/25 21:30 07/19/25 21:31 Temperature Pulse Rate 101 H Blood Pressure 128/82 Pulse Oximetry 99 Oxygen Delivery Room Air 07/19/25 21:33 07/19/25 21:38 07/19/25 21:43 Temperature Pulse Rate Blood Pressure Pulse Oximetry 100 100 99 Oxygen Delivery 07/19/25 21:48 07/19/25 21:53 07/19/25 21:58 Temperature Pulse Rate Blood Pressure Pulse Oximetry 100 100 100 Oxygen Delivery 07/19/25 22:01 07/19/25 22:03 07/19/25 22:08 Temperature Pulse Rate 101 H Blood Pressure 112/68 Pulse Oximetry 100 100 Oxygen Delivery 07/19/25 22:13 07/19/25 22:18 07/19/25 22:23 Temperature Pulse Rate Blood Pressure Pulse Oximetry 99 100 100 Oxygen Delivery 07/19/25 22:25 07/19/25 22:25 07/19/25 22:28 Temperature 97.4 F L Pulse Rate Blood Pressure Pulse Oximetry 100 96 Oxygen Delivery 07/19/25 22:41 07/19/25 22:46 07/19/25 22:51 Temperature Pulse Rate Blood Pressure Pulse Oximetry 99 99 98 Oxygen Delivery 07/19/25 22:56 07/19/25 23:01 07/19/25 23:06 Temperature Pulse Rate 86 Blood Pressure 125/68 Pulse Oximetry 98 98 98 Oxygen Delivery 07/19/25 23:11 07/19/25 23:16 07/19/25 23:17 Temperature Pulse Rate Blood Pressure Pulse Oximetry 98 99 100 Oxygen Delivery 07/19/25 23:22 07/19/25 23:27 07/19/25 23:31 Temperature Pulse Rate 80 Blood Pressure 115/62 Pulse Oximetry 100 99 Oxygen Delivery 07/19/25 23:32 07/19/25 23:35 07/19/25 23:40 Temperature Pulse Rate Blood Pressure Pulse Oximetry 99 100 100 Oxygen Delivery 07/19/25 23:45 07/19/25 23:50 07/19/25 23:52 Temperature Pulse Rate Blood Pressure Pulse Oximetry 100 99 98 Oxygen Delivery 07/19/25 23:57 07/20/25 00:02 07/20/25 00:07 Temperature Pulse Rate 82 Blood Pressure 112/64 Pulse Oximetry 100 98 97 Oxygen Delivery 07/20/25 00:12 07/20/25 00:17 07/20/25 00:22 Temperature Pulse Rate Blood Pressure Pulse Oximetry 96 97 97 Oxygen Delivery 07/20/25 00:27 07/20/25 00:32 07/20/25 00:37 Temperature Pulse Rate Blood Pressure Pulse Oximetry 97 98 99 Oxygen Delivery 07/20/25 00:42 07/20/25 00:47 07/20/25 00:52 Temperature Pulse Rate Blood Pressure Pulse Oximetry 100 100 100 Oxygen Delivery 07/20/25 00:56 07/20/25 05:00 07/20/25 05:02 Temperature 98.1 F Pulse Rate Blood Pressure Pulse Oximetry 100 98 Oxygen Delivery 07/20/25 05:07 07/20/25 05:12 07/20/25 05:17 Temperature Pulse Rate Blood Pressure Pulse Oximetry 100 100 100 Oxygen Delivery 07/20/25 05:22 07/20/25 05:26 07/20/25 05:31 Temperature Pulse Rate 93 Blood Pressure 123/77 Pulse Oximetry 100 100 100 Oxygen Delivery 07/20/25 05:34 07/20/25 05:35 07/20/25 05:35 Temperature Pulse Rate Blood Pressure Pulse Oximetry 69 L 68 L 95 Oxygen Delivery 07/20/25 05:40 07/20/25 05:45 07/20/25 05:50 Temperature Pulse Rate Blood Pressure Pulse Oximetry 100 100 99 Oxygen Delivery 07/20/25 05:55 07/20/25 06:00 07/20/25 06:01 Temperature Pulse Rate 107 H Blood Pressure 107/77 Pulse Oximetry 100 99 Oxygen Delivery 07/20/25 06:05 07/20/25 06:10 07/20/25 06:15 Temperature Pulse Rate Blood Pressure Pulse Oximetry 100 100 100 Oxygen Delivery 07/20/25 06:20 07/20/25 06:25 07/20/25 06:30 Temperature Pulse Rate Blood Pressure Pulse Oximetry 100 100 100 Oxygen Delivery 07/20/25 06:32 07/20/25 06:35 07/20/25 06:40 Temperature Pulse Rate 121 H Blood Pressure 113/70 Pulse Oximetry 97 99 Oxygen Delivery Exam Const: General: cooperative, healthy appearing and comfortable Nutritional Appearance: overweight Orientation/consciousness: oriented to person, oriented to place and oriented to time HENMT: Head: normal to inspection Resp: Effort & Inspection: normal respiratory effort Cardio: Rate: regular rate Rhythm: regular rhythm Heart sounds: S1 normal heart sound present and S2 normal heart sound present GI: Inspection: normal to inspection (Gravid soft uterus) : Speculum Exam - Vagina: normal appearance of the vagina Speculum Exam - Cervix: normal appearance of the cervix (Cervix 1/all thick/-2 attempted a round.) H&P: Results Labs Labs: Short CBC 07/19/25 Range/Units 19:42 WBC 13.4 H (4.5-10.0) K/mm3 Hgb 11.8 L (12.0-15.0) g/dL Hct 37.1 (37.0-47.0) % Plt Count 284 (150-375) k/mm3 BMP 07/19/25 19:42 Sodium 133 L Potassium 3.9 Chloride 104 Carbon Dioxide 20 L BUN 13 D Creatinine 0.68 L Glucose 94 Calcium 9.3 Liver Function 07/19/25 Range/Units 19:42 Total Bilirubin 0.9 (0.2-1.3) mg/dL AST 37 H (14-36) U/L ALT 35 (6-35) U/L Alkaline Phosphatase 202 H (38-126) U/L Albumin 3.6 (3.5-5.1) g/dL Urine 07/19/25 Range/Units 19:43 Urine Color Yellow (Yellow) Urine Appearance Cloudy H (Clear) Urine pH 6.0 (5.0-9.0) Ur Specific [place] 1.020 (1.001-1.035) Urine Protein Negative (Negative) mg/dL Urine Glucose (UA) Negative (Negative) mg/dL Assessment and Plan Assessment and plan (1) : Code(s): Z34.90 - Encounter for supervision of normal , unspecified, unspecified trimester Status: Acute (2) Gestational hypertension: Code(s): O13.9 - Gestational [-induced] hypertension without significant proteinuria, unspecified trimester Status: Acute Plan Medical induction of labor. Spontaneous vaginal delivery is expected. She is an epidural candidate
--- NOTE | 2025-07-20 06:43 | P.PNAN_ITS ---
Anes - Eval Pre Procedure Procedure: labor epidural Date/Time: 07/20/25 06:43 Surgeon: david Preop Diagnosis: pain during labor Pre Op Diagnosis: IOL Patient Data Age: 29 Gender: F Height: 1.7 m Weight: 100 kg Last Vital Signs Temp 36.7 C 07/20/25 05:00 Pulse 121 H 07/20/25 06:32 BP 113/70 07/20/25 06:32 Pulse Ox 99 07/20/25 06:40 O2 Del Method Room Air 07/19/25 21:30 Allergies Allergy/AdvReac Type Severity Reaction Status Date / Time No Known Allergies Allergy Verified 07/19/25 22:26 Home Medications ?Medication ?Instructions ?Recorded ?Confirmed ?Type prenat.vits,hayley,[id number] 1 tablet PO HS 04/08/22 07/11/25 History Probiotic and Prebiotic 07/19/25 History Unisom (doxylamine) 07/19/25 History Laboratory Tests 07/19/25 07/19/25 19:42 19:43 WBC 13.4 H K/mm3 (4.5-10.0) RBC 4.70 M/mm3 (4.2-5.4) Hgb 11.8 L g/dL (12.0-15.0) Hct 37.1 % (37.0-47.0) MCV 78.9 L fl (80-100) MCH 25.1 L pg (26-34) MCHC 31.8 L g/dl (32-36) RDW 13.3 % (11.5-14.5) Plt Count 284 k/mm3 (150-375) MPV 12.8 H fl (7.4-10.4) Immature Gran % (Auto) 0.6 H % (0-0.5) Neut % (Auto) 72.4 % (45.5-73.1) Lymph % (Auto) 19.8 % (18.3-44.2) [place] % (Auto) 6.7 % (2.6-8.5) Eos % (Auto) 0.2 % (0-4.4) Baso % (Auto) 0.3 % (0.2-1.2) Lymph # (Auto) 2.66 K/mm3 (0.9-3.2) [place] # (Auto) 0.9 H K/mm3 (0.1-0.6) Eos # (Auto) 0.0 K/mm3 (0-0.3) Baso # (Auto) 0.0 K/mm3 (0.0-0.1) Abs Immat Gran (auto) 0.08 H K/mm3 (0.00-0.031) Absolute Neuts (auto) 9.7 H K/mm3 (1.3-6.7) Absolute Nucleated RBC 0.000 K/mm3 (0.0-0.012) Nucleated RBC % 0.0 % (0.0-0.2) Sodium 133 L mmol/L (137-145) Potassium 3.9 mmol/L (3.4-5.0) Chloride 104 mmol/L (98-107) Carbon Dioxide 20 L mmol/L (22-30) Anion Gap 9 mmol/L (4-12) BUN 13 D mg/dL (7-17) Creatinine 0.68 L mg/dL (0.7-1.0) Estim Creat Clear Calc Not Reportable Estimated GFR > 60 (59 - ) Glucose 94 mg/dL (65-110) Uric Acid 4.3 mg/dL (2.5-7.5) Calcium 9.3 mg/dL (8.4-10.2) Total Bilirubin 0.9 mg/dL (0.2-1.3) AST 37 H U/L (14-36) ALT 35 U/L (6-35) Alkaline Phosphatase 202 H U/L (38-126) Total Protein 7.4 g/dL (6.3-8.2) Albumin 3.6 g/dL (3.5-5.1) Urine Color Yellow (Yellow) Urine Appearance Cloudy H (Clear) Urine pH 6.0 (5.0-9.0) Ur Specific [place] 1.020 (1.001-1.035) Urine Protein Negative mg/dL (Negative) Urine Glucose (UA) Negative mg/dL (Negative) Urine Ketones Negative mg/dL (Negative) Ur Blood (Man) Negative (Negative) Urine Nitrate Negative (Negative) Urine Bilirubin Negative (Negative) Urine Urobilinogen 1.0 mg/dL (<2.0) Leukocyte Esterase Rfl Negative AVERY/UL (Negative) Urine RBC 0-2 /hpf (0-2) Urine WBC 0-5 /hpf (0-3) Ur Squamous Epith Cells Occasional /hpf (Few) Urine Bacteria None seen /hpf Urine Casts 0-2 U Random Total Protein 9 mg/dL Urine Creatinine 115.7 mg/dL Protein/Creat Ratio 2 0.08 mg/mg (0-0.20) Syphilis IgG/IgM Ab Non-reactive (Nonreactive) Blood Type A Positive Antibody Screen Negative Patient hx anesthesia problems: none Family hx anesthesia problems: none Results Review: All pre-operative results and documents have been reviewed as part of the pre- operative evaluation. [facility] Past Medical History Medical History Obesity (BMI 30-39.9) History of anxiety Family History Family History Other No pertinent family history Social History Social History Smoking status: Never smoker Second hand tobacco smoke exposure: No Alcohol intake: current Substance use: never Substance use type: does not use Lack of Transportation: No Lack of Food: Never True Current Housing: I Have Housing Concerned About Future Housing: No Difficulty Paying Gas/Electric Bills: No Difficulty Paying for Meds: No Currently Unemployed: No Education: Bachelor's Degree Difficulty w/ Childcare or Family Care: No Gender identity (if verbalized by the patient): Female Spiritual care concerns: No Exam Day of Procedure 07/20/25 06:43
--- NOTE | 2025-07-20 10:35 | PM.OBPNLAB ---
Pain Control Date/time seen: 07/20/25 10:35 Pain control: tolerating well and epidural Comments: heart tones reassuring
[2025-07-20] MEDS: ONDANSETRON INJ 4 MG/2 ML VIAL IV PUSH (13:37)
--- NOTE | 2025-07-20 14:16 | PM.OBPRVD ---
OB - Vaginal Delivery Note Procedure Delivery date: 07/20/25 Events: Gestational Hypertension Induction method: Per Cervidil Protocol Delivery augmentation: Rupture of Membranes and Pitocin Delivery monitor: External FHT and External Uterine Route of delivery: Episiotomy description: None Laceration Description: Perineal - 1st Degree Delivery repair: vicryl Specimen: No Quantitative Blood Loss (ml): 162 Anesthesia type: Epidural Disposition: Floor Complications: No immediate complications Narrative: Patient was admitted on the evening of 2 25 for induction of labor secondary to elevated blood pressures at 38 weeks gestation PIH labs were normal artificial rupture membranes performed the a.m. she progressed to an unremarkable 1st stage of labor with Pitocin augmentation got to complete at after epidural and been placed pushed delivered head spontaneously in the KELVIN position anterior posterior shoulder delivered spontaneously. Cord clamped x2 and cut and placed in the warmer given Apgars of 8 [id number] 9 [id number]. Cord blood was drawn. Placenta delivered intact spontaneously. 20units of Pitocin placed IV to help firm the uterus. A 1st degree laceration was noted which did not extend and a [id number] 0 Vicryl was placed blood loss was 162. All sponge, needle, instruments were correct. There were no immediate complications Baby Date of : 07/20/25 Time of : 14:06 Gestational Age by Date: 39 gender: Male Weight (pounds): 7 Weight (ounces): 2 presentation: vertex position: Right Occiput Anterior Placenta delivery description: Spontaneous Cord Vessel Description: 3 Vessels score one minute: 8 score five minutes: 9
--- NOTE | 2025-07-20 14:19 | P.DS_ITS ---
DS: Admitting Diagnosis Discharge Date 07/21/2025 Admitting Diagnosis Term Gestational hypertension DS: Discharge Diagnosis Discharge Diagnosis (1) Gestational hypertension: Code(s): O13.9 - Gestational [-induced] hypertension without significant proteinuria, unspecified trimester Status: Acute (2) : Code(s): Z34.90 - Encounter for supervision of normal , unspecified, unspecified trimester Status: Acute DS: Summary Hospital Course Reason for hospitalization: Patient was admitted for induction of labor on 07/19/2025 and underwent spontaneous vaginal delivery following workup for -induced hypertension Hospital Course: Patient's hospital course unremarkable. She remained afebrile. She was up, voiding without difficulty, eating regular diet, ambulating, generally without complaints. Time Spent with Patient Time attestation: Total time spent providing and/or coordinating discharge services: Exam Const: General: cooperative, healthy appearing and comfortable Nutritional Appearance: overweight Orientation/consciousness: oriented to person, oriented to place and oriented to time HENMT: Head: normal to inspection Resp: Effort & Inspection: normal respiratory effort Cardio: Rate: regular rate Rhythm: regular rhythm Heart sounds: S1 normal heart sound present and S2 normal heart sound present GI: Inspection: normal to inspection (Gravid soft uterus) : Speculum Exam - Vagina: normal appearance of the vagina Speculum Exam - Cervix: normal appearance of the cervix (Cervix 1/all thick/-2 attempted a round.) DS: Data Data Completed and Pending Labs on day of discharge: Labs from last 24 hours 07/19/25 07/19/25 19:43 19:42 WBC 13.4 H RBC 4.70 Hgb 11.8 L Hct 37.1 MCV 78.9 L MCH 25.1 L MCHC 31.8 L RDW 13.3 Plt Count 284 MPV 12.8 H Immature Gran % (Auto) 0.6 H Neut % (Auto) 72.4 Lymph % (Auto) 19.8 [place] % (Auto) 6.7 Eos % (Auto) 0.2 Baso % (Auto) 0.3 Lymph # (Auto) 2.66 [place] # (Auto) 0.9 H Eos # (Auto) 0.0 Baso # (Auto) 0.0 Abs Immat Gran (auto) 0.08 H Absolute Neuts (auto) 9.7 H Absolute Nucleated RBC 0.000 Nucleated RBC % 0.0 Sodium 133 L Potassium 3.9 Chloride 104 Carbon Dioxide 20 L Anion Gap 9 BUN 13 D Creatinine 0.68 L Estim Creat Clear Calc Not Reportable Estimated GFR > 60 Glucose 94 Uric Acid 4.3 Calcium 9.3 Total Bilirubin 0.9 AST 37 H ALT 35 Alkaline Phosphatase 202 H Total Protein 7.4 Albumin 3.6 Urine Color Yellow Urine Appearance Cloudy H Urine pH 6.0 Ur Specific [place] 1.020 Urine Protein Negative Urine Glucose (UA) Negative Urine Ketones Negative Ur Blood (Man) Negative Urine Nitrate Negative Urine Bilirubin Negative Urine Urobilinogen 1.0 Leukocyte Esterase Rfl Negative Urine RBC 0-2 Urine WBC 0-5 Ur Squamous Epith Cells Occasional Urine Bacteria None seen Urine Casts 0-2 U Random Total Protein 9 Urine Creatinine 115.7 Protein/Creat Ratio 2 0.08 Syphilis IgG/IgM Ab Non-reactive Blood Type A Positive Antibody Screen Negative Discharge Plan Discharge Attending physician on discharge: Praful Ashraf Discharging Clinician: Praful Ashraf Patient Disposition: Home Activity: may shower, no straining and pelvic rest Diet: heart healthy Wound Care Instructions: follow printed instructions Patient Instructions: Antibiotic Form Patient Language: Frisian Stand Alone Forms: General Discharge Information Follow-up/Referrals: Praful Ashraf MD [Physician, [employer] [employer]] Discharge Medications: Continued prenat.vits,hayley,[id number] Tablet 1 tablet PO HS Probiotic and Prebiotic Unisom (doxylamine) Date of admission: 07/19/25 19:07 Primary Care Provider: [facility] Admitting Provider: Praful Ashraf Attending physician on admission: Praful Ashraf Condition: Stable
[2025-07-20] MEDS: ACETAMINOPHEN 325 MG TABLET 650 MG PO ×2 (15:02→21:10)
[2025-07-20] MEDS: BENZOCAINE 20% AER SPR (*SP) 56 GM CAN 1 SPRAY TOPICAL (15:03)
[2025-07-20] MEDS: WITCH HAZEL 40 PADS 1 PAD TOPICAL (15:03)
[2025-07-20] MEDS: IBUPROFEN 600 MG TABLET PO (17:34)
[2025-07-20] MEDS: DOCUSATE SODIUM 100 MG CAPSULE PO (17:36)
[2025-07-21] MEDS: IBUPROFEN 600 MG TABLET PO ×3 (01:00→14:20)
[2025-07-21 04:58] VITALS: BP 134/70
[2025-07-21 04:59] LABS: Hematocrit 32.0 % (37.0-47.0); Hemoglobin 10.0 g/dL (12.0-15.0)
[2025-07-21] MEDS: ACETAMINOPHEN 325 MG TABLET 650 MG PO ×2 (05:02→11:30)
--- NOTE | 2025-07-21 07:01 | P.PNOB_ITS ---
OB - PN: Subj Subjective Date/time seen: 07/21/25 07:01 Patient comments: no complaints, pain well controlled and tolerating diet [place] baby status: doing well OB - PN: Obj Data Labs 07/21/25 04:27 07/19/25 19:42 Labs: Laboratory Results - last 24 hr 07/21/25 04:27 Hgb 10.0 L Hct 32.0 L OB - PN A/P Assessment and Plan (1) : Code(s): Z34.90 - Encounter for supervision of normal , unspecified, unspecified trimester Status: Acute (2) Gestational hypertension: Code(s): O13.9 - Gestational [-induced] hypertension without significant proteinuria, unspecified trimester Status: Acute Plan home Time Spent With Patient Time: Total time spent is greater than 50% in coordination of care (as documented) at patient's floor/unit and/or counseling patient: Review of Systems 2 Review of Systems: CONSTITUTIONAL: Denies fever SKIN: Reports laceration MUSCULOSKELETAL: Denies joint pain NEUROLOGIC: Denies numbness All systems reviewed & are unremarkable except as noted in HPI and below Exam 2 Const: General: cooperative, healthy appearing and comfortable Nutritional Appearance: overweight Orientation/consciousness: oriented to person, oriented to place and oriented to time HENMT: Head: normal to inspection Resp: Effort & Inspection: normal respiratory effort Cardio: Rate: regular rate Rhythm: regular rhythm Heart sounds: S1 normal heart sound present and S2 normal heart sound present GI: Inspection: normal to inspection (Gravid soft uterus) : Speculum Exam - Vagina: normal appearance of the vagina Speculum Exam - Cervix: normal appearance of the cervix (Cervix 1/all thick/-2 attempted a round.)
[2025-07-21 07:30] VITALS: BP 128/85; PULSE 71; RESP 18; TEMP 37; O2SAT 98
[2025-07-21 11:23] VITALS: BP 133/80; PULSE 85; RESP 16; TEMP 36.9; O2SAT 98
[2025-07-22 09:37] VITALS: BP 135/80; PULSE 75; RESP 18; TEMP 36.9; O2SAT 100
== END 2025-07-21 15:30 | disposition home or self-care (01) | DRG 807 ==
LOC: ANHLDR 07-20 14:20 → ANHOB2 07-20 16:49
PROVIDERS: Admitting Provider Obstetrics & Gynecology; PCP Physician Assistant; Visit Provider Obstetrics & Gynecology
DX: O13.4 Gestational [pregnancy-induced] hypertension without significant proteinuria, complicating childbirth (principal); Z37.0 Single live birth; Z3A.38 38 weeks gestation of pregnancy; O70.0 First degree perineal laceration during delivery
CPT/HCPCS: 36415; 80053; 81001; 82570; 84156; 84550; 85014; 85018; 85025; 86593; 86850; 86900; 86901; A9270; J2405; J2590; J2795; J7120